=== PATIENT | male | born 1970 | race Caucasian/White ===

== ENCOUNTER 2018-10-30 16:04 | Emergency (ER) | payer OTHER ==
[2018-10-30 16:08] VITALS: BMI 33.6
--- NOTE | 2018-10-30 17:00 | PDOC ---
History of Present Illness - General History Source: Patient Exam Limitations: No Limitations - History of Present Illness Initial Comments: 10/30/18 17:52 The patient is a 47-year-old male, with a significant past medical history of vertigo (meclizine), asthma, and seizures (Trileptal and Keppra, compliant with medications) who presents to the emergency department with dizziness that he describes as unsteadiness, that began 1 week ago. The patient presents with worsening dizzy spells since Thursday, thats aggravated with movement. The patient reports following up with Dr. Garcia, who prescribed the patient meclizine, with slight improvement. The patient reports associated symptoms of tinnitus and headache. At baseline, the patient ambulates with a cane. Denies any recent medication changes. Allergies: NKDA Social history: None reported PCP: Dr. Garcia. Neurologist: Dr. Braldey. <Coby Torres - Last Filed: 10/30/18 19:38> <Taiwo Pressley - Last Filed: 10/30/18 22:35> - General Chief Complaint: Lightheaded Stated Complaint: DIZZIE Time Seen by Provider: 10/30/18 16:39 Past History <Coby Torres - Last Filed: 10/30/18 19:38> - Past Medical History Asthma: Yes Cancer: No Cardiac Disorders: No CVA: No COPD: No CHF: No Dementia: No Diabetes: (hypoglycemia) GI Disorders: No Disorders: No HTN: No Hypercholesterolemia: No Liver Disease: No Seizures: Yes Thyroid Disease: No - Surgical History Abdominal Surgery: No Appendectomy: No Cardiac Surgery: No Cholecystectomy: No Lung Surgery: No Neurologic Surgery: No Orthopedic Surgery: Yes (heel spur left heel; carpal tunnel release, ) - Suicide/Smoking/Psychosocial Hx Smoking Status: No Smoking History: Never smoked Have you smoked in the past 12 months: No Number of Cigarettes Smoked Daily: 0 Hx Alcohol Use: No Drug/Substance Use Hx: No Substance Use Type: None Hx Substance Use Treatment: No <Taiwo Pressley - Last Filed: 10/30/18 22:35> - Past Medical History Allergies/Adverse Reactions: Allergies Allergy/AdvReac Type Severity Reaction Status Date / Time No Known Drug Allergies Allergy Verified 10/30/18 16:08 Home Medications: Ambulatory Orders Albuterol 0.083% Nebulizer Roshni [Ventolin 0.083%] 1 neb NEB QID 06/17/16 Albuterol Sulfate Inhaler - [Ventolin Hfa Inhaler -] 1 - 2 inh PO Q4H PRN Budesonide/Formeterol Fumarate [SYMBICORT 160/4.5mcg -] 2 inh PO DAILY 06/17/16 Buspirone HCl [Buspar -] 10 mg PO DAILY 06/17/16 Citalopram Hydrobromide [Celexa -] 20 mg PO DAILY 06/17/16 Ergocalciferol [Vitamin D2] 50,000 units PO WEEKLY 06/17/16 Famotidine [Pepcid] 40 mg PO DAILY 06/17/16 Montelukast Na [Singulair -] 10 mg PO BID 06/17/16 Propranolol HCl [Propranolol HCl ER] 60 mg PO DAILY 06/17/16 Tiotropium [place] [Spiriva] 1 inh PO DAILY 06/17/16 Zolpidem Tartrate [Ambien] 1 tab PO HS PRN 06/17/16 Fluticasone/Vilanterol [Breo Ellipta 100-25 Mcg INH] 1 each IH DAILY 01/21/17 Gabapentin [Neurontin -] 300 mg PO Q8H 03/05/17 Ibuprofen 800 mg PO BID PRN 03/05/17 Medical Marijuana [Medical Marijuana Oil] 8 mg PO BID #30 tab MDD 2 03/30/17 levETIRAcetam [Keppra -] 1,000 mg PO BID 03/30/17 Oxcarbazepine [Trileptal -] 150 mg PO BID 07/20/17 Diclofenac Sodium 2 gm TP TID PRN #3 tube 10/08/17 Review of Systems - Review of Systems Able to Perform ROS?: Yes Comments:: 10/30/18 17:52 A complete review of 10 out of 10 review of systems is taken and is negative apart from what is previously mentioned below and in the HPI. <Coby Torres - Last Filed: 10/30/18 19:38> *Physical Exam - Vital Signs Last Vital Signs Temp Pulse Resp BP Pulse Ox 98.8 F 74 18 127/77 99 10/30/18 16:05 10/30/18 16:05 10/30/18 16:05 10/30/18 16:05 10/30/18 16:05 - Physical Exam Comments: 10/30/18 19:38 Vitals: Triage Vital signs reviewed General Appearance: no acute distress, well nourished well developed, Head: Atraumatic, normocephalic Eyes: Pupils equal reactive round, extraocular movement intact Ears: TM's normal bilaterally; Neck: Supple;No Nuchal rigidity Chest Wall: Nontender Cardiac: Regular rate and rhythm, no murmurs, no rubs, no gallops, Lungs: Clear to auscultation bilateral, good air movement bilaterally, Abdomen: Soft, nondistended, normal bowel sounds, nontender to palpation Extremities: Full range of motion to all extremities, no cyanosis, clubbing, or edema Skin: Warm and dry, no rashes or lesions, no petechiae Neuro: +ambulated with a cane with steady gait. AOX3; Cranial Nerves 2-12 grossly intact, Strength intact to all extremities, Sensation intact to all extremities Psych: normal mood, normal affect. <Coby Torres - Last Filed: 10/30/18 19:38> - Vital Signs Last Vital Signs Temp Pulse Resp BP Pulse Ox 98.8 F 74 18 127/77 99 10/30/18 16:05 10/30/18 16:05 10/30/18 16:05 10/30/18 16:05 10/30/18 16:05 <Taiwo Pressley - Last Filed: 10/30/18 22:35> Moderate Sedation - Procedure Monitoring Vital Signs: Procedure Monitoring Vital Signs Temperature 98.8 F 10/30/18 16:05 Pulse Rate 74 10/30/18 16:05 Respiratory Rate 18 10/30/18 16:05 Blood Pressure 127/77 10/30/18 16:05 O2 Sat by Pulse Oximetry (%) 99 10/30/18 16:05 <Coby Torres - Last Filed: 10/30/18 19:38> - Procedure Monitoring Vital Signs: Procedure Monitoring Vital Signs Temperature 98.8 F 10/30/18 16:05 Pulse Rate 74 10/30/18 16:05 Respiratory Rate 18 10/30/18 16:05 Blood Pressure 127/77 10/30/18 16:05 O2 Sat by Pulse Oximetry (%) 99 10/30/18 16:05 <Taiwo Pressley - Last Filed: 10/30/18 22:35> ED Treatment Course - LABORATORY CBC & Chemistry Diagram: 10/30/18 17:17 10/30/18 17:17 - ADDITIONAL ORDERS Additional order review: 10/30/18 17:17 RBC 5.15 MCV 89.6 MCHC 34.7 RDW 13.6 MPV 7.0 L Neutrophils % 70.7 Lymphocytes % 22.0 D Monocytes % 6.1 Eosinophils % 0.5 Basophils % 0.7 - Medications Given in the ED: ED Medications Discontinued Medications Generic Name Dose Route Start Last Admin Trade Name Marylou PRN Reason Stop Dose Admin Acetaminophen 1,000 mg 10/30/18 17:02 10/30/18 17:23 Ofirmev Injection - IVPB 10/30/18 17:03 1,000 mg ONCE ONE Administration Lorazepam 0.5 mg 10/30/18 17:02 10/30/18 17:23 Ativan Injection - IVPUSH 10/30/18 17:03 0.5 mg ONCE ONE Administration Meclizine HCl 25 mg 10/30/18 17:02 10/30/18 17:23 Antivert - PO 10/30/18 17:03 25 mg ONCE ONE Administration Sodium Chloride 1,000 ml 10/30/18 17:02 10/30/18 17:23 Normal Saline - IV 10/30/18 17:03 1,000 ml ONCE ONE Administration <Coby Torres - Last Filed: 10/30/18 19:38> - LABORATORY CBC & Chemistry Diagram: 10/30/18 17:17 10/30/18 17:17 <Taiwo Pressley - Last Filed: 10/30/18 22:35> Medical Decision Making - Medical Decision Making 10/30/18 17:44 Plan: BNP, CBC, Fluids, CT head, Keppra level and PO medication. CT head. 10/30/18 19:17 Exam: CT head without IV contrast. Impression: Negative unenhanced CT of the brain. 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 <Coby Torres - Last Filed: 10/30/18 19:38> - Medical Decision Making 10/30/18 19:24 Patient with steady gait around the emergency department no acute findings on CAT scan laboratory analysis within normal limits Keppra level pending Differential diagnosis includes Mnire's disease labyrinthitis chronic vertigo medication adverse effect Patient has ENT follow-up on Thursday recommend that he follow up with his neurologist on Thursday given greater than 1 month history of symptomatology low suspicion for an acute central process at this time Findings, the need for follow-up and strict return instructions discussed with patient. <Taiwo Pressley - Last Filed: 10/30/18 22:35> *DC/Admit/Observation/Transfer - Attestations Scribe Attestion: 10/30/18 17:44 Documentation prepared by Coby Torres, acting as medical research assistant for Taiwo Pressley MD. <Coby Torres - Last Filed: 10/30/18 19:38> - Discharge Dispostion Decision to Admit order: No <Taiwo Pressley - Last Filed: 10/30/18 22:35> Diagnosis at time of Disposition: Vertigo - Discharge Dispostion Disposition: HOME Condition at time of disposition: Improved - Referrals Referrals: Arian Garcia MD [Primary Care Provider] - Awais Bradley MD [Staff Physician] - - Patient Instructions Printed Discharge Instructions: Vertigo Additional Instructions: Drink plenty fluids. Take all home medications as prescribed. Follow-up with her neurologist Dr. Bradley on Thursday. Return to emergency department for any severe worsening symptoms or for any concerns. - Post Discharge Activity
[2018-10-30] MEDS ORDERED: MECLIZINE HCL 25 MG TABLET (FP) PO ONE (17:02)
[2018-10-30] MEDS ORDERED: SODIUM CHLORIDE 0.9% 1000 ML INFUS.BAG IV ONE (17:02)
[2018-10-30] MEDS ORDERED: ACETAMINOPHEN 1000 MG/100 ML VIAL (NON FORMULARY) IVPB ONE (17:02)
[2018-10-30] MEDS ORDERED: MECLIZINE HCL 25 MG TABLET (FP) ONE (17:13)
[2018-10-30] MEDS ORDERED: LORazepam 2 MG/ML SDV VIAL ONE (17:14)
[2018-10-30] MEDS ORDERED: ACETAMINOPHEN INJECTION 100 ML IVPB ONE (17:14)
[2018-10-30 17:25] LABS: BASO % 0.7 % (0-2.0); EOS % 0.5 % (0-4.5); HEMATOCRIT 46.1 % (35.4-49); MCH 31.1 pg (25.7-33.7); MCHC 34.7 g/dl (32.0-35.9); MEAN CELL VOLUME 89.6 fl (80-96); MONO % 6.1 % (3.8-10.2); NEUT % 70.7 % (42.8-82.8); PLATELET COUNT 327 K/MM3 (134-434); RBC 5.15 M/mm3 (4.00-5.60); RDW 13.6 % (11.9-15.9); WHITE BLOOD COUNT 8.5 K/mm3 (4.0-10.0)
[2018-10-30 17:46] LABS: ALBUMIN 3.7 g/dl (3.4-5.0); ALK PHOS 87 U/L (45-117); ANION GAP 6 MMOL/L (8-16); BILIRUBIN,TOTAL 0.2 mg/dL (0.2-1); BLOOD UREA NITROGEN 12 mg/dL (7-18); CALCIUM 8.9 mg/dL (8.5-10.1); CHLORIDE 104 mmol/L (98-107); CO2 27 mmol/L (21-32); CREATININE 0.8 mg/dL (0.55-1.3); GLUCOSE,RANDOM 88 mg/dL (74-106); SGOT/AST 16 U/L (15-37); SGPT/ALT 29 U/L (13-61); SODIUM 137 mmol/L (136-145); TOT PROT 7.2 g/dl (6.4-8.2)
[2018-10-30] MEDS ORDERED: OXcarbazepine 300 MG/5 ML 250 ML BULK BOTTLE PO ONE (19:19)
[2018-10-30] MEDS ORDERED: levETIRAcetam 500 MG TABLET (FP) PO ONE ×2 (19:19→19:38)
[2018-10-30 19:56] VITALS: BP 126/77; PULSE 82; TEMP 98.6
== END 2018-10-30 19:57 | disposition home or self-care (01) ==
LOC: JER 16:04
PROC: 3E033NZ Introduction of Analgesics, Hypnotics, Sedatives into Peripheral Vein, Percutaneous Approach (ICD-10-PCS; principal; 2018-10-30)
PROC: 3E033NZ Introduction of Analgesics, Hypnotics, Sedatives into Peripheral Vein, Percutaneous Approach (ICD-10-PCS; 2018-10-30)
DX: R42 Dizziness and giddiness (principal); J45.909 Unspecified asthma, uncomplicated; G40.909 Epilepsy, unspecified, not intractable, without status epilepticus; Z99.89 Dependence on other enabling machines and devices
CPT/HCPCS: 36415; 70450-TC; 80053; 80177; 85025; 96374; 96375; 99283-25; J0131; J7030

== ENCOUNTER 2019-03-08 08:35 | Day surgery (SDC) | payer OTHER ==
[2019-03-07 13:16] VITALS: BMI 33.6
[2019-03-08 09:00] LABS: BASO % 0.9 % (0-2.0); EOS % 1.1 % (0-4.5); HEMATOCRIT 45.2 % (35.4-49); HEMOGLOBIN 15.2 GM/dL (11.7-16.9); LYMPH % 33.8 % (8-40); MCH 29.9 pg (25.7-33.7); MCHC 33.7 g/dl (32.0-35.9); MEAN CELL VOLUME 88.8 fl (80-96); MEAN PLT VOLUME 6.7 fl (7.5-11.1); MONO % 8.2 % (3.8-10.2); RBC 5.09 M/mm3 (4.00-5.60); RDW 13.7 % (11.9-15.9); WHITE BLOOD COUNT 6.9 K/mm3 (4.0-10.0)
[2019-03-08 09:19] VITALS: BP 106/70; PULSE 71; TEMP 98
[2019-03-08 09:31] LABS: PLATELET COUNT 356 K/MM3 (134-434)
[2019-03-08 10:10] LABS: INR 1.04 (0.83-1.09); PROTHROMBIN TIME (PATIENT) 12.3 SEC (9.7-13.0)
== END 2019-03-08 11:07 | disposition home or self-care (01) ==
LOC: JRADIR 08:35
PROVIDERS: ATTEND Family Medicine
DX: Z53.8 Procedure and treatment not carried out for other reasons (principal)
CPT/HCPCS: 36415; 85025; 85610

== ENCOUNTER 2019-03-28 08:37 | Day surgery (SDC) | payer OTHER ==
[2019-03-25 11:04] VITALS: BMI 33.6
[2019-03-28 09:08] LABS: BASO % 0.6 % (0-2.0); EOS % 0.5 % (0-4.5); HEMATOCRIT 45.1 % (35.4-49); HEMOGLOBIN 15.1 GM/dL (11.7-16.9); LYMPH % 26.5 % (8-40); MCHC 33.5 g/dl (32.0-35.9); MEAN CELL VOLUME 89.4 fl (80-96); MEAN PLT VOLUME 6.9 fl (7.5-11.1); MONO % 7.7 % (3.8-10.2); NEUT % 64.7 % (42.8-82.8); PLATELET COUNT 329 K/MM3 (134-434); RBC 5.05 M/mm3 (4.00-5.60); WHITE BLOOD COUNT 7.3 K/mm3 (4.0-10.0)
[2019-03-28 09:41] LABS: INR 1.13 (0.83-1.09); PROTHROMBIN TIME (PATIENT) 13.3 SEC (9.7-13.0)
[2019-03-28] MEDS ORDERED: ACETAMINOPHEN 325 MG TABLET (FP) PO ONE (13:04)
[2019-03-28 13:54] VITALS: TEMP 97.8
[2019-03-28 14:35] VITALS: BP 110/72; PULSE 77
== END 2019-03-28 14:35 | disposition home or self-care (01) ==
LOC: JRADIR 08:37
PROVIDERS: ATTEND Family Medicine
PROC: 3E0R3BZ Introduction of Anesthetic Agent into Spinal Canal, Percutaneous Approach (ICD-10-PCS; principal; 2019-03-28)
PROC: 3E0R33Z Introduction of Anti-inflammatory into Spinal Canal, Percutaneous Approach (ICD-10-PCS; 2019-03-28)
PROC: B01BYZZ Fluoroscopy of Spinal Cord using Other Contrast (ICD-10-PCS; 2019-03-28)
DX: M54.89 Other dorsalgia (principal); G89.29 Other chronic pain
CPT/HCPCS: 36415; 62322; 77003-TC-FY; 85025; 85610

== ENCOUNTER 2019-05-05 14:02 | Emergency (ER) | payer OTHER ==
[2019-05-05 14:13] VITALS: BP 121/74; PULSE 57; TEMP 98.4; BMI 33.6
--- NOTE | 2019-05-05 14:16 | PDOC ---
Rapid Medical Evaluation Chief Complaint: Back Pain Time Seen by Provider: 05/05/19 14:07 Medical Evaluation: Allergies Allergy/AdvReac Type Severity Reaction Status Date / Time No Known Drug Allergies Allergy Verified 05/05/19 14:13 Vital Signs Temp Pulse Resp BP Pulse Ox 98.4 F 57 L 17 121/74 98 05/05/19 14:10 05/05/19 14:10 05/05/19 14:10 05/05/19 14:10 05/05/19 14:10 05/05/19 14:13 Pt c/o: back pain and neck pain, denies incontinence or abd pain, saddle anesthesia Pt on brief exam: amb w/ cane, no reproducible back pain Pt ordered for: none Pt to proceed to the ED Discharge Disposition - Diagnosis Low back pain Qualifiers: Chronicity: acute Back pain laterality: bilateral Sciatica presence: without sciatica Qualified Code(s): M54.5 - Low back pain - Discharge Dispostion Disposition: HOME Condition at time of disposition: Good - Prescriptions Prescriptions: Cyclobenzaprine HCl [Flexeril 10 mg] 10 mg PO HS PRN #7 tablet PRN Reason: Back Pain Cyclobenzaprine HCl [Flexeril -] 10 mg PO HS #7 tablet Naproxen 500 mg PO BID #20 tablet Naproxen [Naprosyn -] 500 mg PO BID #14 tablet - Referrals Referrals: Arian Garcia MD [Primary Care Provider] - Call tomorrow (call for appointment ) Awais Osman MD [Staff Physician] - Call tomorrow (Call for appointment, ask for back specialist ) - Patient Instructions Printed Discharge Instructions: Low Back Pain Additional Instructions: Activity as tolerated Please call pain management doctor for follow up appointment Take medication as prescribed May call orthopedic number included for appointment - Post Discharge Activity Work/School Note: Back to Work
[2019-05-05] MEDS ORDERED: KETOROLAC TROMETHAMINE 30 MG/1 ML VIAL IM ONE (14:33)
[2019-05-05] MEDS ORDERED: KETOROLAC TROMETHAMINE 30 MG/1 ML VIAL ONE (14:45)
--- NOTE | 2019-05-05 15:12 | PDOC ---
History of Present Illness - General Chief Complaint: Back Pain Stated Complaint: SEVERE BACK PAIN Time Seen by Provider: 05/05/19 14:07 History Source: Patient Exam Limitations: No Limitations - History of Present Illness Initial Comments: 05/05/19 14:34 48 year old male with medical history of seizure and asthma and surgical history of carpal tunnel repair, left heel spur repair, left shoulder repair, and right knee surgery presents with reports of lower back pain since fall yesterday. Patient reports tripping while walking on the sidewalk yesterday falling in sitting position, reports pain from lower back radiating up to neck. Denies numbness or tingling, bowel or bladder dysfunction. Occurred: reports: yesterday Severity: reports: mild Pain Location: reports: back Method of Injury: Yes: fall Modifying Factors: improves with: immobilization, pain medication Loss of Consciousness: no loss of consciousness Associated Symptoms (Fall): denies symptoms Past History - Travel Traveled outside of the country in the last 30 days: No Close contact w/someone who was outside of country & ill: No - Past Medical History Allergies/Adverse Reactions: Allergies Allergy/AdvReac Type Severity Reaction Status Date / Time No Known Drug Allergies Allergy Verified 05/05/19 14:13 Home Medications: Ambulatory Orders Albuterol 0.083% Nebulizer Roshni [Ventolin 0.083%] 1 neb NEB QID 06/17/16 Albuterol Sulfate Inhaler - [Ventolin Hfa Inhaler -] 1 - 2 inh PO Q4H PRN Buspirone HCl [Buspar -] 10 mg PO DAILY 06/17/16 Ergocalciferol [Vitamin D2] 50,000 units PO WEEKLY 06/17/16 Famotidine [Pepcid] 40 mg PO DAILY 06/17/16 Montelukast Na [Singulair -] 10 mg PO BID 06/17/16 Propranolol HCl [Propranolol HCl ER] 20 mg PO DAILY 06/17/16 Tiotropium [place] [Spiriva] 1 inh PO DAILY 06/17/16 Gabapentin [Neurontin -] 300 mg PO Q8H 03/05/17 Ibuprofen 800 mg PO BID PRN 03/05/17 Medical Marijuana [Medical Marijuana Oil] 8 mg PO BID #30 tab MDD 2 03/30/17 levETIRAcetam [Keppra -] 1,000 mg PO BID 03/30/17 Oxcarbazepine [Trileptal -] 600 mg PO BID 07/20/17 Cetirizine HCl [Zyrtec -] 10 mg PO HS 03/08/19 Fluticasone/Vilanterol [Breo Ellipta 100-25 Mcg INH] 1 each IH DAILY 03/08/19 Naproxen/Esomeprazole Mag [Vimovo Dr 500-20 mg Tablet] 1 each PO BID 03/08/19 Pramipexole Di-HCl [Pramipexole Dihydrochloride] 0.5 mg PO HS 03/08/19 Primidone 100 mg PO DAILY 03/08/19 Topiramate 100 mg PO BID 03/08/19 Cyclobenzaprine HCl [Flexeril -] 10 mg PO HS #7 tablet 05/05/19 Cyclobenzaprine HCl [Flexeril 10 mg] 10 mg PO HS PRN #7 tablet 05/05/19 Naproxen 500 mg PO BID #20 tablet 05/05/19 Naproxen [Naprosyn -] 500 mg PO BID #14 tablet 05/05/19 Anemia: No Asthma: Yes Cancer: No Cardiac Disorders: No CVA: No COPD: No CHF: No Dementia: No Diabetes: (hypoglycemia) GI Disorders: No Disorders: No HTN: No Hypercholesterolemia: No Liver Disease: No Seizures: Yes (epilepsy-last one 02/27/19) Thyroid Disease: No - Surgical History Abdominal Surgery: No Appendectomy: No Cardiac Surgery: No Cholecystectomy: No Lung Surgery: No Neurologic Surgery: No Orthopedic Surgery: Yes (heel spur left heel; carpal tunnel release, ) - Suicide/Smoking/Psychosocial Hx Smoking Status: No Smoking History: Never smoked Have you smoked in the past 12 months: No Number of Cigarettes Smoked Daily: 0 Hx Alcohol Use: No Drug/Substance Use Hx: Yes (MEDICAL MARIJUANA, LIQUID FORM) Substance Use Type: Marijuana Hx Substance Use Treatment: No Trauma Specific PMHX - Complaint Specific PMHX Arthritis: No Back Injury: Yes Neck Injury: No Hx Sacro Iliac Joint Dysfunction: No Review of Systems - Review of Systems Able to Perform ROS?: Yes Constitutional: No: Chills, Diaphoresis, Unexplained wgt Loss HEENTM: No: Blurred Vision, Cataracts, Nose Pain, Nose Congestion, Hearing Loss , Throat Swelling Respiratory: No: Orthopnea, Wheezing Cardiac (ROS): No: Chest Pain, Edema, Lightheadedness, Palpitations Musculoskeletal: Yes: Back Pain, Neck Pain. No: Joint Pain Integumentary: No: Bruising, Erythema, Flushing Neurological: No: Numbness, Tremors, Weakness Hematologic/Lymphatic: No: Bleeding Diathesis *Physical Exam - Vital Signs Last Vital Signs Temp Pulse Resp BP Pulse Ox 98.4 F 57 L 17 121/74 98 05/05/19 14:10 05/05/19 14:10 05/05/19 14:10 05/05/19 14:10 05/05/19 14:10 - Physical Exam General Appearance: Yes: Nourished HEENT: positive: TMs Normal, Pharynx Normal Neck: positive: Supple. negative: Lymphadenopathy (R), Lymphadenopathy (L) Respiratory/Chest: positive: Lungs Clear Cardiovascular: positive: Regular Rhythm, Regular Rate Musculoskeletal: positive: Other (tenderness in para lumbar region). 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 Plan: lumbar sacral xray analgesia 05/05/19 22:17 no acute changes noted on xray , chronic conditions is the same from 12/28 *DC/Admit/Observation/Transfer Diagnosis at time of Disposition: Low back pain Qualifiers: Chronicity: acute Back pain laterality: bilateral Sciatica presence: without sciatica Qualified Code(s): M54.5 - Low back pain - Discharge Dispostion Disposition: HOME Condition at time of disposition: Good Decision to Admit order: No - Prescriptions Prescriptions: Cyclobenzaprine HCl [Flexeril 10 mg] 10 mg PO HS PRN #7 tablet PRN Reason: Back Pain Cyclobenzaprine HCl [Flexeril -] 10 mg PO HS #7 tablet Naproxen 500 mg PO BID #20 tablet Naproxen [Naprosyn -] 500 mg PO BID #14 tablet - Referrals Referrals: Arian Garcia MD [Primary Care Provider] - Call tomorrow (call for appointment ) Awais Osman MD [Staff Physician] - Call tomorrow (Call for appointment, ask for back specialist ) - Patient Instructions Printed Discharge Instructions: Low Back Pain Additional Instructions: Activity as tolerated Please call pain management doctor for follow up appointment Take medication as prescribed January call orthopedic number included for appointment - Post Discharge Activity Forms/Work/School Notes: Back to Work
[2019-05-05] MEDS ORDERED: CYCLOBENZAPRINE HCL 10 MG TABLET (FP) PO ONE (15:47)
[2019-05-05] MEDS ORDERED: CYCLOBENZAPRINE HCL 10 MG TABLET (FP) ONE (15:50)
== END 2019-05-05 16:57 | disposition home or self-care (01) ==
LOC: JERFT 14:02
PROC: 3E0233Z Introduction of Anti-inflammatory into Muscle, Percutaneous Approach (ICD-10-PCS; principal; 2019-05-05)
DX: M54.5 Low back pain (principal); G40.909 Epilepsy, unspecified, not intractable, without status epilepticus; J45.909 Unspecified asthma, uncomplicated
CPT/HCPCS: 72100-TC-FY; 99282-25

== ENCOUNTER 2019-06-02 18:37 | Inpatient (IN) | payer OTHER ==
--- NOTE | 2019-06-02 18:55 | PDOC ---
Rapid Medical Evaluation Chief Complaint: Seizure Time Seen by Provider: 06/02/19 18:46 Medical Evaluation: Allergies Allergy/AdvReac Type Severity Reaction Status Date / Time No Known Drug Allergies Allergy Verified 05/05/19 14:13 06/02/19 18:51 Pt presents to the ER after having a seizure. Just started Dilantin as he is having break through seizures on keppra and trilptal. He is compliant with meds. Exam: NAD, not postictal Orders: labs Pt to presents to the ER for further evaluation Discharge Disposition - Diagnosis Seizure - Referrals Referrals: Arian Garcia MD [Primary Care Provider] - - Patient Instructions - Post Discharge Activity
[2019-06-02 20:08] LABS: BASO % 0.7 % (0-2.0); EOS % 0.9 % (0-4.5); HEMATOCRIT 45.4 % (35.4-49); HEMOGLOBIN 15.1 GM/dL (11.7-16.9); LYMPH % 25.9 % (8-40); MCH 29.4 pg (25.7-33.7); MCHC 33.3 g/dl (32.0-35.9); MEAN CELL VOLUME 88.4 fl (80-96); MEAN PLT VOLUME 7.2 fl (7.5-11.1); NEUT % 63.5 % (42.8-82.8); PLATELET COUNT 352 K/MM3 (134-434); RBC 5.13 M/mm3 (4.00-5.60); RDW 13.8 % (11.9-15.9); WHITE BLOOD COUNT 8.2 K/mm3 (4.0-10.0)
--- NOTE | 2019-06-02 20:21 | PDOC ---
History of Present Illness - General Chief Complaint: Seizure Stated Complaint: Seizure Time Seen by Provider: 06/02/19 18:46 History Source: Patient - History of Present Illness Initial Comments: 06/02/19 20:24 48 y/o/m with PMHx of seizures here for seizures that occurred today and yesterday. He states he had two seizures that occurred yesterday that were witnessed by his brother. Patient is unsure how long the seizures lasted yesterday but believes it was only for a few minutes. He had two seizures today , one in the afternoon one in the evening, that were unwitnessed but he believes only lasted a few seconds. He denies any incontinence or fall during any of his seizures. He complains of a headache and states that he usually has a migraine after his seizures. He takes Keepra and trileptal for seizures and was also started on Dilantin yesterday. He denies any chest pain, SOB, abd pain , dysuria, fever, cough, or other symptoms. PCP: Dr. Garcia Neurologist: Dr. Stuart Meza PMHx: Vertigo, Asthma, Seizures, sleep apnea SHx: Heel spurs, R knee surgery for cartilage repair, L shoulder surgery for torn ligament repair, bilateral carpal tunnel surgery Social: denies alcohol and tobacco use. reports using medical marijuana twice a day Past History - Past Medical History Allergies/Adverse Reactions: Allergies Allergy/AdvReac Type Severity Reaction Status Date / Time No Known Drug Allergies Allergy Verified 05/05/19 14:13 Home Medications: Ambulatory Orders Albuterol 0.083% Nebulizer Roshni [Ventolin 0.083%] 1 neb NEB QID 06/17/16 Albuterol Sulfate Inhaler - [Ventolin Hfa Inhaler -] 1 - 2 inh PO Q4H PRN Buspirone HCl [Buspar -] 10 mg PO DAILY 06/17/16 Ergocalciferol [Vitamin D2] 50,000 units PO WEEKLY 06/17/16 Famotidine [Pepcid] 40 mg PO DAILY 06/17/16 Montelukast Na [Singulair -] 10 mg PO BID 06/17/16 Propranolol HCl [Propranolol HCl ER] 20 mg PO DAILY 06/17/16 Tiotropium [place] [Spiriva] 1 inh PO DAILY 06/17/16 Gabapentin [Neurontin -] 300 mg PO Q8H 03/05/17 Ibuprofen 800 mg PO BID PRN 03/05/17 Medical Marijuana [Medical Marijuana Oil] 8 mg PO BID #30 tab MDD 2 03/30/17 levETIRAcetam [Keppra -] 1,000 mg PO BID 03/30/17 Oxcarbazepine [Trileptal -] 600 mg PO BID 07/20/17 Cetirizine HCl [Zyrtec -] 10 mg PO HS 03/08/19 Fluticasone/Vilanterol [Breo Ellipta 100-25 Mcg INH] 1 each IH DAILY 03/08/19 Naproxen/Esomeprazole Mag [Vimovo Dr 500-20 mg Tablet] 1 each PO BID 03/08/19 Pramipexole Di-HCl [Pramipexole Dihydrochloride] 0.5 mg PO HS 03/08/19 Primidone 100 mg PO DAILY 03/08/19 Topiramate 100 mg PO BID 03/08/19 Cyclobenzaprine HCl [Flexeril 10 mg] 10 mg PO HS PRN #7 tablet 05/05/19 Naproxen 500 mg PO BID #20 tablet 05/05/19 Naproxen [Naprosyn -] 500 mg PO BID #14 tablet 05/05/19 Anemia: No Asthma: Yes Cancer: No Cardiac Disorders: No CVA: No COPD: No CHF: No Dementia: No Diabetes: (hypoglycemia) GI Disorders: No Disorders: No HTN: No Hypercholesterolemia: No Liver Disease: No Seizures: Yes (epilepsy-last one 02/27/19) Thyroid Disease: No - Surgical History Abdominal Surgery: No Appendectomy: No Cardiac Surgery: No Cholecystectomy: No Lung Surgery: No Neurologic Surgery: No Orthopedic Surgery: Yes (heel spur left heel; carpal tunnel release, ) - Immunization History Immunization Up to Date: Yes - Suicide/Smoking/Psychosocial Hx Smoking Status: No Smoking History: Never smoked Have you smoked in the past 12 months: No Number of Cigarettes Smoked Daily: 0 Hx Alcohol Use: No Drug/Substance Use Hx: No Substance Use Type: Marijuana Hx Substance Use Treatment: No Review of Systems - Review of Systems Able to Perform ROS?: Yes Constitutional: No: Chills, Fever HEENTM: Yes: Blurred Vision. No: Nose Congestion Respiratory: Yes: Wheezing. No: Cough Cardiac (ROS): No: Chest Pain, Lightheadedness ABD/GI: No: Diarrhea, Nausea, Vomiting : No: Dysuria Musculoskeletal: Yes: Back Pain (chronic) Integumentary: No: Rash Neurological: Yes: Headache Endocrine: No: Excessive Sweating *Physical Exam - Vital Signs Last Vital Signs Temp Pulse Resp BP Pulse Ox 98.2 F 89 16 116/77 96 06/02/19 18:49 06/02/19 18:49 06/02/19 18:49 06/02/19 18:49 06/02/19 18:49 - Physical Exam General Appearance: Yes: Nourished, Appropriately Dressed HEENT: positive: EOMI, MATT, Normal Voice, Symmetrical Neck: positive: Trachea midline, Supple Respiratory/Chest: positive: Lungs Clear, Normal Breath Sounds. negative: Accessory Muscle Use Cardiovascular: positive: Regular Rhythm, Regular Rate, S1, S2 Gastrointestinal/Abdominal: positive: Normal Bowel Sounds, Tender (mild tenderness to palpation over LLQ), Soft Musculoskeletal: negative: CVA Tenderness Extremity: positive: Normal Capillary Refill. negative: Swelling Integumentary: positive: Dry Neurologic: positive: gate tender II-XII NML intact, Fully Oriented, Alert, Motor Strength 5/5, Finger to Nose ED Treatment Course - LABORATORY CBC & Chemistry Diagram: 06/02/19 19:45 06/02/19 19:45 Medical Decision Making - Medical Decision Making 06/02/19 20:38 -48 y/o/m with PMHx of seizures here for seizures that occurred today and yesterday. He states he had two seizures that occurred yesterday that were witnessed by his brother. Patient is unsure how long the seizures lasted yesterday but believes it was only for a few minutes. He had two seizures today , one in the afternoon one in the evening, that were unwitnessed but he believes only lasted a few seconds. He denies any incontinence or fall during any of his seizures. -Workup with: CBC, CMP, Keppra level, Phenytoin level, Lactic acid level, UA, EKG, CT head w/o contrast, CXR. -Tylenol given for headache. -Contacted the answering service for patient's Neurologist, waiting for a call back for recommendations and to schedule follow up. 06/02/19 21:53 -Spoke with Dr. Meza, patient's neurologist. Told that patient is taking Keppra 1500mg BID, Trileptal 600mg TID, and Primodone 250mg TID. Patient is not taking Dilantin. As patient has not taken his evening doses of medication advised to give medications, obtain head CT, phenobarbital levels. Unable to follow up with patient tomorrow as Dr. Meza will not be in his office until Thursday of next week, will see the patient in the office then. -Discussed medications with patient. Patient states he was mistaken, he is not taking Dilantin and is taking Primodone. -Ordered patients home seizure medications. -Will reassess after medications. 06/02/19 22:39 -CBC, CMP grossly normal. Keppra and phenobarbital levels pending. -CT head report negative. CXR reviewed, similar to previous CXR. -Will likely admit patient as patient has had 4 seizures in the last 24 hours which is unusual for him and is unable to follow up with his neurologist until Thursday. -Patient has yet to provide urine for a UA as he does not have to go yet. Provided patient with hydration. -EKG reviewed. Normal sinus rhythm, no acute ischemic changes. 06/02/19 23:39 -UA grossly normal -admitting team microblogged 06/03/19 00:18 -Patient admitted under Dr. Silva to Med/Surg *DC/Admit/Observation/Transfer Diagnosis at time of Disposition: Seizure - Referrals Referrals: Arian Garcia MD [Primary Care Provider] - - Patient Instructions - Post Discharge Activity
[2019-06-02] MEDS ORDERED: ACETAMINOPHEN 325 MG TABLET (FP) PO ONE (20:27)
[2019-06-02 20:34] LABS: ALBUMIN 3.3 g/dl (3.4-5.0); BILIRUBIN,TOTAL 0.2 mg/dL (0.2-1); BLOOD UREA NITROGEN 20.3 mg/dL (7-18); CALCIUM 8.8 mg/dL (8.5-10.1); POTASSIUM 3.9 mmol/L (3.5-5.1); TOT PROT 6.4 g/dl (6.4-8.2)
[2019-06-02] MEDS ORDERED: ACETAMINOPHEN 325 MG TABLET (FP) ONE (20:43)
[2019-06-02] MEDS ORDERED: levETIRAcetam 500 MG/5 ML INJECTION VIAL IVPB ONE ×2 (21:13→22:08)
[2019-06-02] MEDS ORDERED: PRIMIDONE 250 MG TABLET PO ONE (21:15)
--- NOTE | 2019-06-02 21:41 | PDOC ---
Attending Attestation - Resident Resident Name: Mingo Leongruelearnestine Barbara - ED Attending Attestation I have performed the following: I have examined & evaluated the patient, The case was reviewed & discussed with the resident, I agree w/resident's findings & plan, Exceptions are as noted - HPI HPI: 06/02/19 21:40 48M pmh sz do on keppra, trileptal and recent addition of primodone here with 4 breakthrough seizures in the past 48 hours. Yesterday, the events were witness by his brother who described a seizure typical of prior seizures where the patient, without an aura, becomes inattentive to surroundings, starts speaking non-sense, retains postural tone then recovers in less than a minute followed by a short post-ictal period usually c/b a throbbing headache. The episodes today were not witnessed, but patient states that he had two periods where he lost time followed by headache which is typical for him. He is compliant with his medications but states that he missed his last evening dose before coming to the ED. No recent illnesses, denies falling, head trauma, pain outside of headache. - Physicial Exam PE: 06/03/19 00:53 Agree with exam as documented by resident - Medical Decision Making 06/03/19 00:53 Frequent breakthrough seizures in patient with long standing seizure disorder. Patient has had episodes of frequent seizures in the past followed by periods seizure free. Recent increase in seizure activity after changes in medication consider electrolyte imbalance, new intracranial pathology, worsening of primary sz do f/u labs, ct, ekg give evening dose of AEDs consider admission, dispo per clinical course Frequent seizure admit for optimization of treatment, fall/trauma risk neurology aware
[2019-06-02] MEDS ORDERED: OXcarbazepine 300 MG TABLET (UD) PO ONE (22:15)
[2019-06-02] MEDS: OXcarbazepine 300 MG/5 ML 250 ML BULK BOTTLE PO ONE ×2 (22:25→22:26)
[2019-06-02 23:28] LABS: PH,URINE 5.5 (5.0-8.0); URINE APPEARANCE CLEAR; URINE BILIRUBIN NEGATIVE (NEGATIVE); URINE COLOR YELLOW; URINE GLUCOSE (UA) NEGATIVE (NEGATIVE); URINE KETONE NEGATIVE (NEGATIVE); URINE LEUK ESTERASE NEGATIVE (NEGATIVE); URINE NITRITE NEGATIVE (NEGATIVE); URINE PROTEIN NEGATIVE (NEGATIVE)
[2019-06-02] MEDS ORDERED: IBUPROFEN 600 MG TABLET (FP) PO ONE (23:39)
--- NOTE | 2019-06-03 00:35 | HP ---
Admitting History and Physical - Primary Care Physician PCP: Arian Garcia I - Admission Chief Complaint: Seizure Activity History of Present Illness: This is a 48 y/o man with a PMHx of Seizures, Asthma, SAMMIE, Vertigo. Who presents to the ED with seizure activity x 4 episodes in 2 days. Patient had 2 seizures today witnessed by his brother. Patient reports missing his anticonvulsant meds this evening, but generally takes his medications as prescribed. Patient denies fever, chills, cough, MO, dizziness, SOB, CP, palpitations, AP, N/V/D, dysuria History Source: Patient, Family Member Limitations to Obtaining History: No Limitations - Past Medical History PROVIDER RELATIONS REP: Yes: Migraine, Seizure Pulmonary: Yes: Asthma - Past Surgical History Past Surgical History: Yes: None - Smoking History Smoking history: Never smoked Have you smoked in the past 12 months: No Aproximately how many cigarettes per day: 0 - Alcohol/Substance Use Hx Alcohol Use: No History of Substance Use: reports: None - Social History Usual Living Arrangement: Yes: With Parent, Other (Brother) ADL: Independent History of Recent Travel: No Home Medications - Allergies Allergies/Adverse Reactions: Allergies Allergy/AdvReac Type Severity Reaction Status Date / Time No Known Drug Allergies Allergy Verified 05/05/19 14:13 - Home Medications Home Medications: Ambulatory Orders Albuterol 0.083% Nebulizer Roshni [Ventolin 0.083%] 1 neb NEB QID 06/17/16 Albuterol Sulfate Inhaler - [Ventolin Hfa Inhaler -] 1 - 2 inh PO Q4H PRN Buspirone HCl [Buspar -] 10 mg PO DAILY 06/17/16 Ergocalciferol [Vitamin D2] 50,000 units PO WEEKLY 06/17/16 Famotidine [Pepcid] 40 mg PO DAILY 06/17/16 Montelukast Na [Singulair -] 10 mg PO BID 06/17/16 Propranolol HCl [Propranolol HCl ER] 20 mg PO DAILY 06/17/16 Tiotropium [place] [Spiriva] 1 inh PO DAILY 06/17/16 Gabapentin [Neurontin -] 300 mg PO Q8H 03/05/17 Ibuprofen 800 mg PO BID PRN 03/05/17 Medical Marijuana [Medical Marijuana Oil] 8 mg PO BID #30 tab MDD 2 03/30/17 levETIRAcetam [Keppra -] 1,500 mg PO BID 03/30/17 Oxcarbazepine [Trileptal -] 600 mg PO BID 07/20/17 Cetirizine HCl [Zyrtec -] 10 mg PO HS 03/08/19 Fluticasone/Vilanterol [Breo Ellipta 100-25 Mcg INH] 1 each IH DAILY 03/08/19 Naproxen/Esomeprazole Mag [Vimovo Dr 500-20 mg Tablet] 1 each PO BID 03/08/19 Pramipexole Di-HCl [Pramipexole Dihydrochloride] 0.5 mg PO HS 03/08/19 Primidone 250 mg PO DAILY 03/08/19 Topiramate 100 mg PO BID 03/08/19 Cyclobenzaprine HCl [Flexeril 10 mg] 10 mg PO HS PRN #7 tablet 05/05/19 Naproxen 500 mg PO BID #20 tablet 05/05/19 Naproxen [Naprosyn -] 500 mg PO BID #14 tablet 05/05/19 Family Medical History Family Hx Respiratory Disorders: Mother (Asthma) Review of Systems - Review of Systems Constitutional: reports: No Symptoms Eyes: reports: No Symptoms HENT: reports: No Symptoms Neck: reports: No Symptoms Cardiovascular: reports: No Symptoms Respiratory: reports: No Symptoms Gastrointestinal: reports: No Symptoms Genitourinary: reports: No Symptoms Breasts: reports: No Symptoms Reported Musculoskeletal: reports: No Symptoms Integumentary: reports: No Symptoms Neurological: reports: Seizure Endocrine: reports: No Symptoms Hematology/Lymphatic: reports: No Symptoms Psychiatric: reports: No Symptoms Physical Examination Vital Signs: Vital Signs Temperature 97.3 F L 06/02/19 22:02 Pulse Rate 67 06/02/19 22:02 Respiratory Rate 16 06/02/19 18:49 Blood Pressure 105/71 06/02/19 22:02 O2 Sat by Pulse Oximetry (%) 98 06/02/19 22:02 Constitutional: Yes: Well Nourished, No Distress, Calm Eyes: Yes: WNL, Conjunctiva Clear, EOM Intact, PERRL HENT: Yes: WNL, Atraumatic, Normocephalic Neck: Yes: WNL, Supple, Trachea Midline Cardiovascular: Yes: WNL, Regular Rate and Rhythm, S1, S2 Respiratory: Yes: WNL, Regular, CTA Bilaterally Gastrointestinal: Yes: WNL, Normal Bowel Sounds, Soft, Abdomen, Obese ...Rectal Exam: Yes: Deferred Renal/: Yes: WNL Breast(s): Yes: WNL Musculoskeletal: Yes: WNL Extremities: Yes: WNL Edema: No Peripheral Pulses WNL: Yes Neurological: Yes: WNL, Alert, Oriented, Cran Nerves II-XII Intact ...Motor Strength: WNL Psychiatric: Yes: WNL, Alert, Oriented Labs: CBC, BMP 06/02/19 19:45 06/02/19 19:45 Laboratory Results - last 24 hr 06/02/19 06/02/19 06/02/19 19:45 19:45 19:45 WBC 8.2 RBC 5.13 Hgb 15.1 Hct 45.4 MCV 88.4 MCH 29.4 MCHC 33.3 RDW 13.8 Plt Count 352 MPV 7.2 L Absolute Neuts (auto) 5.2 Neutrophils % 63.5 Lymphocytes % 25.9 Monocytes % 9.0 Eosinophils % 0.9 Basophils % 0.7 Nucleated RBC % 0 Sodium 137 Potassium 3.9 Chloride 105 Carbon Dioxide 25 Anion Gap 6 L BUN 20.3 H Creatinine 1.0 Est GFR (CKD-EPI)AfAm 102.69 Est GFR (CKD-EPI)NonAf 88.61 Random Glucose 83 Lactic Acid Calcium 8.8 Total Bilirubin 0.2 AST 16 ALT 31 Alkaline Phosphatase 85 Total Protein 6.4 Albumin 3.3 L Urine Color Urine Appearance Urine pH Ur Specific [place] Urine Protein Urine Glucose (UA) Urine Ketones Urine Blood Urine Nitrite Urine Bilirubin Urine Urobilinogen Ur Leukocyte Esterase Phenytoin 1.1 06/02/19 06/02/19 19:45 23:21 WBC RBC Hgb Hct MCV MCH MCHC RDW Plt Count MPV Absolute Neuts (auto) Neutrophils % Lymphocytes % Monocytes % Eosinophils % Basophils % Nucleated RBC % Sodium Potassium Chloride Carbon Dioxide Anion Gap BUN Creatinine Est GFR (CKD-EPI)AfAm Est GFR (CKD-EPI)NonAf Random Glucose Lactic Acid 1.1 Calcium Total Bilirubin AST ALT Alkaline Phosphatase Total Protein Albumin Urine Color Yellow Urine Appearance Clear Urine pH 5.5 D Ur Specific [place] 1.030 Urine Protein Negative Urine Glucose (UA) Negative Urine Ketones Negative Urine Blood Negative Urine Nitrite Negative Urine Bilirubin Negative Urine Urobilinogen 1.0 Ur Leukocyte Esterase Negative Phenytoin Intake & Output 05/31/19 06/01/19 06/02/19 06/03/19 23:59 23:59 23:59 23:59 Weight 97.522 kg 101.015 kg Current Medications Generic Name Dose Route Start Last Admin Trade Name Freq PRN Reason Stop Dose Admin Heparin Sodium (Porcine) 5,000 unit 06/03/19 10:00 Heparin - SQ BID KEMI Levetiracetam 1,500 mg 06/03/19 10:00 Keppra - PO BID KEMI Miscellaneous 1 each 06/03/19 22:00 Lidoderm Patch Removal MC 06/03/19 22:01 ONCE@2200 ONE Oxcarbazepine 600 mg 06/03/19 06:00 Trileptal PO TID KEMI Primidone 250 mg 06/03/19 06:00 Mysoline - PO TID KEMI Imaging - Results Chest X-ray: Image Reviewed Cat Scan: Report Reviewed, Image Reviewed EKG: Image Reviewed Problem List - Problems (1) Seizure Code(s): R56.9 - UNSPECIFIED CONVULSIONS (2) Anxiety and depression Code(s): F41.9 - ANXIETY DISORDER, UNSPECIFIED; F32.9 - MAJOR DEPRESSIVE DISORDER, SINGLE EPISODE, UNSPECIFIED (3) Asthma Code(s): J45.909 - UNSPECIFIED ASTHMA, UNCOMPLICATED Qualifiers: Asthma severity: mild intermittent Asthma complication type: with acute exacerbation Assessment/Plan This is a 48 y/o man admitted for Seizure Activity for further evaluation of their emergent condition Plan: Admit Head CT- neg ICH, no mass or lesion Keppra, Trileptal, Primidone given in ED, will continue Appreciate Neurology consult Neurochecks Seizure Precautions Fall Precautions UA and UDT ordered Continue home meds Monitor CBC, BMP Monitor vitals FEN- PO fluids as tolerated, Replete lytes prn, Regular Diet DVT ppx- OOB, SCDs, Heparin SQ Dispo: Requires Inpatient Care Visit type - Emergency Visit Emergency Visit: Yes ED Registration Date: 06/02/19 Care time: The patient presented to the Emergency Department on the above date and was hospitalized for further evaluation of their emergent condition. - New Patient This patient is new to me today: Yes Date on this admission: 06/03/19 - Critical Care Critical Care patient: No
[2019-06-03] MEDS ORDERED: IBUPROFEN 600 MG TABLET (FP) PO ONE (01:38)
[2019-06-03] MEDS ORDERED: LIDOCAINE 5% TOPICAL PATCH TP ONE ×2 (01:41→20:14)
[2019-06-03] MEDS ORDERED: ACETAMINOPHEN 325 MG TABLET (FP) PO ONE (01:48)
[2019-06-03] MEDS ORDERED: LIDOCAINE 5% TOPICAL PATCH ONE (02:09)
[2019-06-03 04:11] VITALS: BMI 34.9
[2019-06-03] MEDS ORDERED: PT OWN MED DRAWER 7, Y5N ONE ×3 (06:05→21:25)
[2019-06-03 06:44] LABS: BASO % 0.3 % (0-2.0); EOS % 1.3 % (0-4.5); HEMATOCRIT 41.5 % (35.4-49); HEMOGLOBIN 13.9 GM/dL (11.7-16.9); LYMPH % 36.1 % (8-40); MCH 29.6 pg (25.7-33.7); MCHC 33.5 g/dl (32.0-35.9); MEAN CELL VOLUME 88.2 fl (80-96); MONO % 7.6 % (3.8-10.2); NEUT % 54.7 % (42.8-82.8); PLATELET COUNT 307 K/MM3 (134-434); RBC 4.71 M/mm3 (4.00-5.60); RDW 13.7 % (11.9-15.9); WHITE BLOOD COUNT 7.8 K/mm3 (4.0-10.0)
[2019-06-03] MEDS: OXcarbazepine 300 MG/5 ML 250 ML BULK BOTTLE PO SCH ×3 (07:20→21:39)
[2019-06-03] MEDS: PRIMIDONE 250 MG TABLET PO SCH ×3 (07:20→21:39)
[2019-06-03 07:22] LABS: BLOOD UREA NITROGEN 22.2 mg/dL (7-18); CALCIUM 8.5 mg/dL (8.5-10.1); CREATININE 0.9 mg/dL (0.55-1.3); POTASSIUM 3.7 mmol/L (3.5-5.1)
--- NOTE | 2019-06-03 09:39 | CONSULT ---
Consult - text type - Consultation Consultation Note: Neurology - Admission Chief Complaint: Seizure Activity History of Present Illness: This is a 48 y/o man with a PMHx of Seizures, Asthma, SAMMIE, Vertigo. Who presents to the ED with seizure activity x 4 episodes in 2 days. Patient had 2 seizures on day of admission witnessed by his brother. Patient reported missing his anticonvulsant meds the evening of admission, but generally takes his medications as prescribed. Patient denies fever, chills, cough, MO, dizziness, SOB, CP, palpitations, AP, N/V/D, dysuria. his list includes Keppra 1500 mg twice a day, Trileptal 600 mg twice a day along with Topamax 100 mg twice a day. Of note, he is also on medical marijuana according to medication list. At this time, I would slightly increase Topamax to 150 mg twice a day for improved seizure control. The patient does provide limited history and is unclear in terms of what is exactly a seizure. Since recent event was witnessed, feel that medication increases warranted. Ct head reviewed them without acute changes. History Source: Patient, Family Member Limitations to Obtaining History: No Limitations - Past Medical History LEI SELLER: Yes: Migraine, Seizure Pulmonary: Yes: Asthma - Past Surgical History Past Surgical History: Yes: None - Smoking History Smoking history: Never smoked Have you smoked in the past 12 months: No Aproximately how many cigarettes per day: 0 - Alcohol/Substance Use Hx Alcohol Use: No History of Substance Use: reports: None - Social History Usual Living Arrangement: Yes: With Parent, Other (Brother) ADL: Independent History of Recent Travel: No Home Medications - Allergies Allergies/Adverse Reactions: Allergies Allergy/AdvReac Type Severity Reaction Status Date / Time No Known Drug Allergies Allergy Verified 05/05/19 14:13 - Home Medications Home Medications: Ambulatory Orders Albuterol 0.083% Nebulizer Roshni [Ventolin 0.083%] 1 neb NEB QID 06/17/16 Albuterol Sulfate Inhaler - [Ventolin Hfa Inhaler -] 1 - 2 inh PO Q4H PRN Buspirone HCl [Buspar -] 10 mg PO DAILY 06/17/16 Ergocalciferol [Vitamin D2] 50,000 units PO WEEKLY 06/17/16 Famotidine [Pepcid] 40 mg PO DAILY 06/17/16 Montelukast Na [Singulair -] 10 mg PO BID 06/17/16 Propranolol HCl [Propranolol HCl ER] 20 mg PO DAILY 06/17/16 Tiotropium [place] [Spiriva] 1 inh PO DAILY 06/17/16 Gabapentin [Neurontin -] 300 mg PO Q8H 03/05/17 Ibuprofen 800 mg PO BID PRN 03/05/17 Medical Marijuana [Medical Marijuana Oil] 8 mg PO BID #30 tab MDD 2 03/30/17 levETIRAcetam [Keppra -] 1,500 mg PO BID 03/30/17 Oxcarbazepine [Trileptal -] 600 mg PO BID 07/20/17 Cetirizine HCl [Zyrtec -] 10 mg PO HS 03/08/19 Fluticasone/Vilanterol [Breo Ellipta 100-25 Mcg INH] 1 each IH DAILY 03/08/19 Naproxen/Esomeprazole Mag [Vimovo Dr 500-20 mg Tablet] 1 each PO BID 03/08/19 Pramipexole Di-HCl [Pramipexole Dihydrochloride] 0.5 mg PO HS 03/08/19 Primidone 250 mg PO DAILY 03/08/19 Topiramate 100 mg PO BID 03/08/19 Cyclobenzaprine HCl [Flexeril 10 mg] 10 mg PO HS PRN #7 tablet 05/05/19 Naproxen 500 mg PO BID #20 tablet 05/05/19 Naproxen [Naprosyn -] 500 mg PO BID #14 tablet 05/05/19 Family Medical History Family Hx Respiratory Disorders: Mother (Asthma) Review of Systems - Review of Systems Constitutional: reports: No Symptoms Eyes: reports: No Symptoms HENT: reports: No Symptoms Neck: reports: No Symptoms Cardiovascular: reports: No Symptoms Respiratory: reports: No Symptoms Gastrointestinal: reports: No Symptoms Genitourinary: reports: No Symptoms Breasts: reports: No Symptoms Reported Musculoskeletal: reports: No Symptoms Integumentary: reports: No Symptoms Neurological: reports: Seizure Endocrine: reports: No Symptoms Hematology/Lymphatic: reports: No Symptoms Psychiatric: reports: No Symptoms Physical Examination Vital Signs: Vital Signs Temperature 97.3 F L 06/02/19 22:02 Pulse Rate 67 06/02/19 22:02 Respiratory Rate 16 06/02/19 18:49 Blood Pressure 105/71 06/02/19 22:02 O2 Sat by Pulse Oximetry (%) 98 06/02/19 22:02 Constitutional: Yes: Well Nourished, No Distress, Calm Eyes: Yes: WNL, Conjunctiva Clear, EOM Intact, PERRL HENT: Yes: WNL, Atraumatic, Normocephalic Neck: Yes: WNL, Supple, Trachea Midline Cardiovascular: Yes: WNL, Regular Rate and Rhythm, S1, S2 Respiratory: Yes: WNL, Regular, CTA Bilaterally Gastrointestinal: Yes: WNL, Normal Bowel Sounds, Soft, Abdomen, Obese ...Rectal Exam: Yes: Deferred Renal/: Yes: WNL Breast(s): Yes: WNL Musculoskeletal: Yes: WNL Extremities: Yes: WNL Edema: No Peripheral Pulses WNL: Yes Neurological: cranial nerves intact, moves all extremities equally, no abnormal movements, sensory normal, finger-nose intact Laboratory Results - last 24 hr 06/02/19 06/02/19 06/02/19 19:45 19:45 19:45 WBC 8.2 RBC 5.13 Hgb 15.1 Hct 45.4 MCV 88.4 MCH 29.4 MCHC 33.3 RDW 13.8 Plt Count 352 MPV 7.2 L Absolute Neuts (auto) 5.2 Neutrophils % 63.5 Lymphocytes % 25.9 Monocytes % 9.0 Eosinophils % 0.9 Basophils % 0.7 Nucleated RBC % 0 Sodium 137 Potassium 3.9 Chloride 105 Carbon Dioxide 25 Anion Gap 6 L BUN 20.3 H Creatinine 1.0 Est GFR (CKD-EPI)AfAm 102.69 Est GFR (CKD-EPI)NonAf 88.61 Random Glucose 83 Lactic Acid Calcium 8.8 Total Bilirubin 0.2 AST 16 ALT 31 Alkaline Phosphatase 85 Total Protein 6.4 Albumin 3.3 L Urine Color Urine Appearance Urine pH Ur Specific [place] Urine Protein Urine Glucose (UA) Urine Ketones Urine Blood Urine Nitrite Urine Bilirubin Urine Urobilinogen Ur Leukocyte Esterase Phenytoin 1.1 06/02/19 06/02/19 19:45 23:21 WBC RBC Hgb Hct MCV MCH MCHC RDW Plt Count MPV Absolute Neuts (auto) Neutrophils % Lymphocytes % Monocytes % Eosinophils % Basophils % Nucleated RBC % Sodium Potassium Chloride Carbon Dioxide Anion Gap BUN Creatinine Est GFR (CKD-EPI)AfAm Est GFR (CKD-EPI)NonAf Random Glucose Lactic Acid 1.1 Calcium Total Bilirubin AST ALT Alkaline Phosphatase Total Protein Albumin Urine Color Yellow Urine Appearance Clear Urine pH 5.5 D Ur Specific [place] 1.030 Urine Protein Negative Urine Glucose (UA) Negative Urine Ketones Negative Urine Blood Negative Urine Nitrite Negative Urine Bilirubin Negative Urine Urobilinogen 1.0 Ur Leukocyte Esterase Negative Phenytoin Assessment/Plan This is a 48 y/o man with a PMHx of Seizures, Asthma, SAMMIE, Vertigo. Who presents to the ED with seizure activity x 4 episodes in 2 days. Patient had 2 seizures on day of admission witnessed by his brother. Patient reported missing his anticonvulsant meds the evening of admission, but generally takes his medications as prescribed. Patient denies fever, chills, cough, MO, dizziness, SOB, CP, palpitations, AP, N/V/D, dysuria. his list includes Keppra 1500 mg twice a day, Trileptal 600 mg twice a day along with Topamax 100 mg twice a day. Of note, he is also on medical marijuana according to medication list. At this time, I would slightly increase Topamax to 150 mg twice a day for improved seizure control. The patient does provide limited history and is unclear in terms of what is exactly a seizure. Since recent event was witnessed, feel that medication increases warranted. Ct head reviewed them without acute changes. Please observe overnight and if remains seizure free by tomorrow afternoon than would consider discharge. Continue medical optimization and monitor for infections, replenish electrolytes, adequate hydration recommended, seizure precautions.
[2019-06-03] MEDS ORDERED: TOPIRAMATE 100 MG TABLET PO SCH (10:00)
[2019-06-03] MEDS ORDERED: TOPIRAMATE 25 MG TABLET (FP) PO SCH (10:00)
[2019-06-03] MEDS: levETIRAcetam 500 MG TABLET (FP) PO SCH ×2 (10:57→21:39)
[2019-06-03] MEDS: HEPARIN NA (PORCINE) 5,000 UNITS/ML 1ML VIAL SQ SCH ×2 (10:58→21:40)
[2019-06-03] MEDS ORDERED: TOPIRAMATE 100 MG TABLET ONE ×2 (12:25→21:25)
[2019-06-03] MEDS ORDERED: TOPIRAMATE 25 MG TABLET (FP) ONE ×2 (12:25→21:25)
[2019-06-03] MEDS: TOPIRAMATE 100 MG, TOPIRAMATE 50 MG PO SCH ×2 (12:28→21:39)
--- NOTE | 2019-06-03 14:23 | EKG ---
Test Reason : Blood Pressure : / mmHG Vent. Rate : 078 BPM Atrial Rate : 078 BPM P-R Int : 148 ms QRS Dur : 086 ms QT Int : 366 ms P-R-T Axes : 057 038 035 degrees QTc Int : 417 ms NORMAL SINUS RHYTHM POSSIBLE LEFT ATRIAL ENLARGEMENT WHEN COMPARED WITH ECG OF 28-APR-2015 05:08, NO SIGNIFICANT CHANGE WAS FOUND Confirmed by PRITESH PAGAN MD ([id number]) on 06/03/2019 2:23:32 PM Referred By: Confirmed By:PRITESH PAGAN MD
[2019-06-03] MEDS: ACETAMINOPHEN 325 MG TABLET (FP) PO PRN ×2 (15:44→20:21)
--- NOTE | 2019-06-03 16:42 | PN ---
Progress Note, Physician Chief Complaint: Seizures History of Present Illness: Previous notes and events reviewed awake and alert NAD no seizure episodes reported complain of headache - Current Medication List Current Medications: Active Medications Acetaminophen (Tylenol -) 650 mg PO Q6H PRN PRN Reason: PAIN Last Admin: 06/03/19 15:44 Dose: 650 mg Heparin Sodium (Porcine) (Heparin -) 5,000 unit SQ BID [facility] Last Admin: 06/03/19 10:58 Dose: 5,000 unit Levetiracetam (Keppra -) 1,500 mg PO BID [facility] Last Admin: 06/03/19 10:57 Dose: 1,500 mg Miscellaneous (Lidoderm Patch Removal) 1 each ONCE@2200 ONE Stop: 06/03/19 22:01 Oxcarbazepine (Trileptal) 600 mg PO TID [facility] Last Admin: 06/03/19 14:09 Dose: 600 mg Primidone (Mysoline -) 250 mg PO TID [facility] Last Admin: 06/03/19 14:10 Dose: 250 mg Topiramate 100 mg/ Topiramate (50 mg) 150 mg PO BID [facility] Last Admin: 06/03/19 12:28 Dose: 150 mg - Objective Vital Signs: Vital Signs Temperature 98.5 F 06/03/19 14:00 Pulse Rate 78 06/03/19 14:00 Respiratory Rate 18 06/03/19 14:00 Blood Pressure 113/74 06/03/19 14:00 O2 Sat by Pulse Oximetry (%) 98 06/02/19 22:02 Constitutional: Yes: No Distress, Calm Eyes: Yes: Conjunctiva Clear HENT: Yes: Atraumatic Cardiovascular: Yes: Regular Rate and Rhythm Respiratory: Yes: Regular, CTA Bilaterally Gastrointestinal: Yes: Normal Bowel Sounds, Soft Musculoskeletal: Yes: Muscle Weakness Extremities: Yes: WNL Edema: No Neurological: Yes: Alert, Oriented Psychiatric: Yes: Alert, Oriented Labs: CBC, BMP 06/03/19 06:00 06/03/19 06:00 Problem List - Problems (1) Seizure Assessment/Plan: -Neurology on board -Head CT shows no intracranial pathology and definitive interval changesince -neuro checks -seizure precaution -fall precautions -Keppra, Topamax, Trileptal, Mysoline Code(s): R56.9 - UNSPECIFIED CONVULSIONS Assessment/Plan see problem list dvt ppx
[2019-06-03] MEDS: LIDOCAINE PATCH REMOVAL MC SCH (21:39)
[2019-06-03] MEDS ORDERED: LIDOCAINE PATCH REMOVAL MC ONE (22:00)
[2019-06-04] MEDS: ACETAMINOPHEN 325 MG TABLET (FP) PO PRN ×2 (04:14→16:14)
[2019-06-04] MEDS: OXcarbazepine 300 MG/5 ML 250 ML BULK BOTTLE PO SCH ×3 (06:19→22:42)
[2019-06-04] MEDS: PRIMIDONE 250 MG TABLET PO SCH ×3 (06:19→21:26)
[2019-06-04 06:38] LABS: HEMATOCRIT 42.1 % (35.4-49); HEMOGLOBIN 14.3 GM/dL (11.7-16.9); MEAN CELL VOLUME 88.3 fl (80-96); MEAN PLT VOLUME 6.9 fl (7.5-11.1); PLATELET COUNT 321 K/MM3 (134-434); RBC 4.77 M/mm3 (4.00-5.60); RDW 13.9 % (11.9-15.9); WHITE BLOOD COUNT 6.7 K/mm3 (4.0-10.0)
[2019-06-04 07:07] LABS: ALBUMIN 3.1 g/dl (3.4-5.0); BILIRUBIN,TOTAL 0.4 mg/dL (0.2-1); BLOOD UREA NITROGEN 15.4 mg/dL (7-18); CALCIUM 8.7 mg/dL (8.5-10.1); CREATININE 0.9 mg/dL (0.55-1.3); POTASSIUM 3.8 mmol/L (3.5-5.1); TOT PROT 5.8 g/dl (6.4-8.2)
[2019-06-04] MEDS ORDERED: TOPIRAMATE 100 MG TABLET ONE ×2 (10:10→21:16)
[2019-06-04] MEDS ORDERED: TOPIRAMATE 25 MG TABLET (FP) ONE ×2 (10:10→21:16)
[2019-06-04] MEDS ORDERED: levETIRAcetam 250 MG TABLET (FP) PO ONE ×2 (10:11→10:12)
[2019-06-04] MEDS: HEPARIN NA (PORCINE) 5,000 UNITS/ML 1ML VIAL SQ SCH ×2 (10:21→21:26)
[2019-06-04] MEDS: levETIRAcetam 500 MG TABLET (FP) PO SCH ×2 (10:21→21:26)
[2019-06-04] MEDS: TOPIRAMATE 100 MG, TOPIRAMATE 50 MG PO SCH ×2 (10:22→21:26)
--- NOTE | 2019-06-04 10:28 | PN ---
Progress Note, Physician Chief Complaint: AWAKE ALERT C/O HEADACHES, NO FEVERS APPETITE IS GOOD DENIES VISION ABNORMALITY - Current Medication List Current Medications: Active Medications Acetaminophen (Tylenol -) 650 mg PO Q6H PRN PRN Reason: PAIN Last Admin: 06/04/19 04:14 Dose: 650 mg Heparin Sodium (Porcine) (Heparin -) 5,000 unit SQ BID [facility] Last Admin: 06/04/19 10:21 Dose: 5,000 unit Levetiracetam (Keppra -) 1,500 mg PO BID [facility] Last Admin: 06/04/19 10:21 Dose: 1,500 mg Miscellaneous (Lidoderm Patch Removal) 1 each MC DAILY@2200 [facility] Last Admin: 06/03/19 21:39 Dose: 1 each Oxcarbazepine (Trileptal) 600 mg PO TID [facility] Last Admin: 06/04/19 06:19 Dose: 600 mg Primidone (Mysoline -) 250 mg PO TID [facility] Last Admin: 06/04/19 06:19 Dose: 250 mg Topiramate 100 mg/ Topiramate (50 mg) 150 mg PO BID [facility] Last Admin: 06/04/19 10:22 Dose: 150 mg - Objective Vital Signs: Vital Signs Temperature 97.6 F 06/04/19 10:23 Pulse Rate 73 06/04/19 10:23 Respiratory Rate 18 06/04/19 10:23 Blood Pressure 106/72 06/04/19 10:23 O2 Sat by Pulse Oximetry (%) 98 06/02/19 22:02 Constitutional: Yes: Mild Distress Cardiovascular: Yes: Regular Rate and Rhythm Respiratory: Yes: WNL Genitourinary: Yes: Incontinence Musculoskeletal: Yes: Muscle Weakness Extremities: Yes: WNL Edema: No Integumentary: Yes: Rash, Venous Stasis Changes Wound/Incision: Yes: Open to air Neurological: Yes: Pre-Existing Deficit, Seizure, Unsteady Gait, Weakness ...Motor Strength: LLE, RLE Psychiatric: Yes: Other Labs: CBC, BMP 06/04/19 05:30 06/04/19 05:30 Problem List - Problems (1) Seizure Code(s): R56.9 - UNSPECIFIED CONVULSIONS (2) Anxiety and depression Code(s): F41.9 - ANXIETY DISORDER, UNSPECIFIED; F32.9 - MAJOR DEPRESSIVE DISORDER, SINGLE EPISODE, UNSPECIFIED (3) Asthma Code(s): J45.909 - UNSPECIFIED ASTHMA, UNCOMPLICATED Qualifiers: Asthma severity: mild intermittent Asthma complication type: with acute exacerbation (4) DISH (diffuse idiopathic skeletal hyperostosis) Code(s): M48.10 - ANKYLOSING HYPEROSTOSIS [FORESTIER], SITE UNSPECIFIED (5) Status migrainosus Code(s): G43.901 - MIGRAINE, UNSP, NOT INTRACTABLE, WITH STATUS MIGRAINOSUS (6) Vertigo Code(s): R42 - DIZZINESS AND GIDDINESS Assessment/Plan SEIZURE D/O STABLE ADD TORADOL IV LABS REVIEWED PT IVORY
--- NOTE | 2019-06-04 10:29 | PN ---
Progress Note (short form) - Note Progress Note: Neurology - Admission Chief Complaint: Seizure Activity History of Present Illness: This is a 48 y/o man with a PMHx of Seizures, Asthma, SAMMIE, Vertigo. Who presents to the ED with seizure activity x 4 episodes in 2 days. Patient had 2 seizures on day of admission witnessed by his brother. Patient reported missing his anticonvulsant meds the evening of admission, but generally takes his medications as prescribed. Patient denies fever, chills, cough, MO, dizziness, SOB, CP, palpitations, AP, N/V/D, dysuria. his list includes Keppra 1500 mg twice a day, Trileptal 600 mg twice a day along with Topamax 100 mg twice a day. Of note, he is also on medical marijuana according to medication list. At this time, I would slightly increase Topamax to 150 mg twice a day for improved seizure control. The patient does provide limited history and is unclear in terms of what is exactly a seizure. Since recent event was witnessed, feel that medication increases warranted. Ct head reviewed them without acute changes. Topamax 150mg BID ordered. Discussed with PCP, remains stable, complains of headaches, PCP planning to give medication. Patient on TPM which reduces headaches. Allergies Allergy/AdvReac Type Severity Reaction Status Date / Time No Known Drug Allergies Allergy Verified 05/05/19 14:13 Active Medications Acetaminophen (Tylenol -) 650 mg PO Q6H PRN PRN Reason: PAIN Last Admin: 06/04/19 04:14 Dose: 650 mg Heparin Sodium (Porcine) (Heparin -) 5,000 unit SQ BID [facility] Last Admin: 06/04/19 10:21 Dose: 5,000 unit Levetiracetam (Keppra -) 1,500 mg PO BID [facility] Last Admin: 06/04/19 10:21 Dose: 1,500 mg Miscellaneous (Lidoderm Patch Removal) 1 each [facility] DAILY@2200 [facility] Last Admin: 06/03/19 21:39 Dose: 1 each Oxcarbazepine (Trileptal) 600 mg PO TID [facility] Last Admin: 06/04/19 06:19 Dose: 600 mg Primidone (Mysoline -) 250 mg PO TID [facility] Last Admin: 06/04/19 06:19 Dose: 250 mg Topiramate 100 mg/ Topiramate (50 mg) 150 mg PO BID [facility] Last Admin: 06/04/19 10:22 Dose: 150 mg Physical Examination Vital Signs: Vital Signs Period Temp Pulse Resp BP Sys/Cr Pulse Ox Last 24 Hr 97.5 F-98.5 F 66-79 18-20 100-113/54-77 Constitutional: Yes: Well Nourished, No Distress, Calm Eyes: Yes: WNL, Conjunctiva Clear, EOM Intact, PERRL HENT: Yes: WNL, Atraumatic, Normocephalic Neck: Yes: WNL, Supple, Trachea Midline Cardiovascular: Yes: WNL, Regular Rate and Rhythm, S1, S2 Respiratory: Yes: WNL, Regular, CTA Bilaterally Gastrointestinal: Yes: WNL, Normal Bowel Sounds, Soft, Abdomen, Obese ...Rectal Exam: Yes: Deferred Renal/: Yes: WNL Breast(s): Yes: WNL Musculoskeletal: Yes: WNL Extremities: Yes: WNL Edema: No Peripheral Pulses WNL: Yes Neurological: cranial nerves intact, moves all extremities equally, no abnormal movements, sensory normal, finger-nose intact CBCD WBC 6.7 K/mm3 (4.0-10.0) 06/04/19 05:30 RBC 4.77 M/mm3 (4.00-5.60) 06/04/19 05:30 Hgb 14.3 GM/dL (11.7-16.9) 06/04/19 05:30 Hct 42.1 % (35.4-49) 06/04/19 05:30 MCV 88.3 fl (80-96) 06/04/19 05:30 MCHC 34.0 g/dl (32.0-35.9) 06/04/19 05:30 RDW 13.9 % (11.9-15.9) 06/04/19 05:30 Plt Count 321 K/MM3 (134-434) 06/04/19 05:30 MPV 6.9 fl (7.5-11.1) L 06/04/19 05:30 CMP Sodium 136 mmol/L (136-145) 06/04/19 05:30 Potassium 3.8 mmol/L (3.5-5.1) 06/04/19 05:30 Chloride 105 mmol/L (98-107) 06/04/19 05:30 Carbon Dioxide 24 mmol/L (21-32) 06/04/19 05:30 Anion Gap 7 MMOL/L (8-16) L 06/04/19 05:30 BUN 15.4 mg/dL (7-18) 06/04/19 05:30 Creatinine 0.9 mg/dL (0.55-1.3) 06/04/19 05:30 Calcium 8.7 mg/dL (8.5-10.1) 06/04/19 05:30 Total Bilirubin 0.4 mg/dL (0.2-1) 06/04/19 05:30 AST 13 U/L (15-37) L 06/04/19 05:30 ALT 25 U/L (13-61) 06/04/19 05:30 Alkaline Phosphatase 71 U/L (45-117) 06/04/19 05:30 Total Protein 5.8 g/dl (6.4-8.2) L 06/04/19 05:30 Albumin 3.1 g/dl (3.4-5.0) L 06/04/19 05:30 Assessment/Plan This is a 48 y/o man with a PMHx of Seizures, Asthma, SAMMIE, Vertigo. Who presents to the ED with seizure activity x 4 episodes in 2 days. Patient had 2 seizures on day of admission witnessed by his brother. Patient reported missing his anticonvulsant meds the evening of admission, but generally takes his medications as prescribed. Patient denies fever, chills, cough, MO, dizziness, SOB, CP, palpitations, AP, N/V/D, dysuria. his list includes Keppra 1500 mg twice a day, Trileptal 600 mg twice a day along with Topamax 100 mg twice a day. Of note, he is also on medical marijuana according to medication list. At this time, I would slightly increase Topamax to 150 mg twice a day for improved seizure control. The patient does provide limited history and is unclear in terms of what is exactly a seizure. Since recent event was witnessed, feel that medication increases warranted. Ct head reviewed them without acute changes. Tomamax 150mg BID ordered. Continue medical optimization and monitor for infections, replenish electrolytes, adequate hydration recommended, seizure precautions. D/C planning as per primary.
[2019-06-04] MEDS: KETOROLAC TROMETHAMINE 30 MG/1 ML VIAL IVPUSH PRN ×2 (13:01→22:42)
[2019-06-04] MEDS ORDERED: PT OWN MED DRAWER 7, Y5N ONE ×2 (21:17→22:39)
[2019-06-04] MEDS: LIDOCAINE PATCH REMOVAL MC SCH (21:27)
[2019-06-05] MEDS: PRIMIDONE 250 MG TABLET PO SCH ×3 (06:05→22:37)
[2019-06-05] MEDS: OXcarbazepine 300 MG/5 ML 250 ML BULK BOTTLE PO SCH ×3 (06:35→22:38)
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
[2019-06-05] MEDS ORDERED: TOPIRAMATE 100 MG TABLET ONE ×2 (10:20→22:34)
[2019-06-05] MEDS ORDERED: TOPIRAMATE 25 MG TABLET (FP) ONE ×2 (10:20→22:34)
--- NOTE | 2019-06-05 10:30 | PN ---
Progress Note (short form) - Note Progress Note: Neurology - Admission Chief Complaint: Seizure Activity History of Present Illness: This is a 48 y/o man with a PMHx of Seizures, Asthma, SAMMIE, Vertigo. Who presents to the ED with seizure activity x 4 episodes in 2 days. Patient had 2 seizures on day of admission witnessed by his brother. Patient reported missing his anticonvulsant meds the evening of admission, but generally takes his medications as prescribed. Patient denies fever, chills, cough, MO, dizziness, SOB, CP, palpitations, AP, N/V/D, dysuria. his list includes Keppra 1500 mg twice a day, Trileptal 600 mg twice a day along with Topamax 100 mg twice a day. Of note, he is also on medical marijuana according to medication list. At this time, I would slightly increase Topamax to 150 mg twice a day for improved seizure control. The patient does provide limited history and is unclear in terms of what is exactly a seizure. Since recent event was witnessed, feel that medication increases warranted. Ct head reviewed them without acute changes. Topamax 150mg BID ordered. ppatient reports episodic seizures but none witnessed and possibly pseudoseizures this point. Has multiple other constitutional complaints including headaches and stated that concern for bloody bowel movement though nurse indicates she has not witnessed any of this. Patient not specific and provides limited history when asked further details. Provided reassurance that neurologic exam stable and imaging has been negative. Allergies Allergy/AdvReac Type Severity Reaction Status Date / Time No Known Drug Allergies Allergy Verified 05/05/19 14:13 Active Medications Acetaminophen (Tylenol -) 650 mg PO Q6H PRN PRN Reason: PAIN Last Admin: 06/04/19 16:14 Dose: 650 mg Heparin Sodium (Porcine) (Heparin -) 5,000 unit SQ BID [facility] Last Admin: 06/04/19 21:26 Dose: 5,000 unit Ketorolac Tromethamine (Toradol Injection -) 30 mg IVPUSH Q6H PRN PRN Reason: PAIN LEVEL 7 - 10 Stop: 06/09/19 11:01 Last Admin: 06/04/19 22:42 Dose: 30 mg Levetiracetam (Keppra -) 1,500 mg PO BID [facility] Last Admin: 06/04/19 21:26 Dose: 1,500 mg Miscellaneous (Lidoderm Patch Removal) 1 each MC DAILY@2200 [facility] Last Admin: 06/04/19 21:27 Dose: 1 each Oxcarbazepine (Trileptal) 600 mg PO TID [facility] Last Admin: 06/05/19 06:35 Dose: 600 mg Primidone (Mysoline -) 250 mg PO TID [facility] Last Admin: 06/05/19 06:05 Dose: 250 mg Topiramate 100 mg/ Topiramate (50 mg) 150 mg PO BID [facility] Last Admin: 06/04/19 21:26 Dose: 150 mg Physical Examination Vital Signs: Vital Signs Period Temp Pulse Resp BP Sys/Cr Pulse Ox Last 24 Hr 97.5 F-98.7 F 71-81 18-20 92-114/50-77 Constitutional: Yes: Well Nourished, No Distress, Calm Eyes: Yes: WNL, Conjunctiva Clear, EOM Intact, PERRL HENT: Yes: WNL, Atraumatic, Normocephalic Neck: Yes: WNL, Supple, Trachea Midline Cardiovascular: Yes: WNL, Regular Rate and Rhythm, S1, S2 Respiratory: Yes: WNL, Regular, CTA Bilaterally Gastrointestinal: Yes: WNL, Normal Bowel Sounds, Soft, Abdomen, Obese ...Rectal Exam: Yes: Deferred Renal/: Yes: WNL Breast(s): Yes: WNL Musculoskeletal: Yes: WNL Extremities: Yes: WNL Edema: No Peripheral Pulses WNL: Yes Neurological: cranial nerves intact, moves all extremities equally, no abnormal movements, sensory normal, finger-nose intact CBCD WBC 6.7 K/mm3 (4.0-10.0) 06/04/19 05:30 RBC 4.77 M/mm3 (4.00-5.60) 06/04/19 05:30 Hgb 14.3 GM/dL (11.7-16.9) 06/04/19 05:30 Hct 42.1 % (35.4-49) 06/04/19 05:30 MCV 88.3 fl (80-96) 06/04/19 05:30 MCHC 34.0 g/dl (32.0-35.9) 06/04/19 05:30 RDW 13.9 % (11.9-15.9) 06/04/19 05:30 Plt Count 321 K/MM3 (134-434) 06/04/19 05:30 MPV 6.9 fl (7.5-11.1) L 06/04/19 05:30 CMP Sodium 136 mmol/L (136-145) 06/04/19 05:30 Potassium 3.8 mmol/L (3.5-5.1) 06/04/19 05:30 Chloride 105 mmol/L (98-107) 06/04/19 05:30 Carbon Dioxide 24 mmol/L (21-32) 06/04/19 05:30 Anion Gap 7 MMOL/L (8-16) L 06/04/19 05:30 BUN 15.4 mg/dL (7-18) 06/04/19 05:30 Creatinine 0.9 mg/dL (0.55-1.3) 06/04/19 05:30 Random Glucose 81 mg/dL (74-106) 06/04/19 05:30 Calcium 8.7 mg/dL (8.5-10.1) 06/04/19 05:30 Total Bilirubin 0.4 mg/dL (0.2-1) 06/04/19 05:30 AST 13 U/L (15-37) L 06/04/19 05:30 ALT 25 U/L (13-61) 06/04/19 05:30 Alkaline Phosphatase 71 U/L (45-117) 06/04/19 05:30 Total Protein 5.8 g/dl (6.4-8.2) L 06/04/19 05:30 Albumin 3.1 g/dl (3.4-5.0) L 06/04/19 05:30 Assessment/Plan This is a 48 y/o man with a PMHx of Seizures, Asthma, SAMMIE, Vertigo. Who presents to the ED with seizure activity x 4 episodes in 2 days. Patient had 2 seizures on day of admission witnessed by his brother. Patient reported missing his anticonvulsant meds the evening of admission, but generally takes his medications as prescribed. Patient denies fever, chills, cough, MO, dizziness, SOB, CP, palpitations, AP, N/V/D, dysuria. his list includes Keppra 1500 mg twice a day, Trileptal 600 mg twice a day along with Topamax 100 mg twice a day. Of note, he is also on medical marijuana according to medication list. At this time, I would slightly increase Topamax to 150 mg twice a day for improved seizure control. The patient does provide limited history and is unclear in terms of what is exactly a seizure. Since recent event was witnessed, feel that medication increases warranted. Ct head reviewed them without acute changes. Tomamax 150mg BID ordered. Patient reports episodic seizures but none witnessed and possibly pseudoseizures this point. Has multiple other constitutional complaints including headaches and stated that concern for bloody bowel movement though nurse indicates she has not witnessed any of this. Patient not specific and provides limited history when asked further details. Provided reassurance that neurologic exam stable and imaging has been negative. Continue medical optimization and monitor for infections, replenish electrolytes, adequate hydration recommended, seizure precautions. D/ C planning as per primary.
[2019-06-05] MEDS: HEPARIN NA (PORCINE) 5,000 UNITS/ML 1ML VIAL SQ SCH ×2 (10:47→22:38)
[2019-06-05] MEDS: KETOROLAC TROMETHAMINE 30 MG/1 ML VIAL IVPUSH PRN ×2 (10:47→18:40)
[2019-06-05] MEDS: TOPIRAMATE 100 MG, TOPIRAMATE 50 MG PO SCH ×2 (10:49→22:36)
[2019-06-05] MEDS: levETIRAcetam 500 MG TABLET (FP) PO SCH ×2 (10:49→22:38)
[2019-06-05] MEDS: ACETAMINOPHEN 325 MG TABLET (FP) PO PRN (14:55)
[2019-06-05] MEDS ORDERED: PT OWN MED DRAWER 7, Y5N ONE (22:35)
[2019-06-05] MEDS: LIDOCAINE PATCH REMOVAL MC SCH (22:38)
[2019-06-06] MEDS: OXcarbazepine 300 MG/5 ML 250 ML BULK BOTTLE PO SCH ×2 (05:39→14:36)
[2019-06-06] MEDS: PRIMIDONE 250 MG TABLET PO SCH ×2 (05:40→14:36)
--- NOTE | 2019-06-06 08:13 | DS ---
Physical Examination Vital Signs: Vital Signs Temperature 97.6 F 06/06/19 05:00 Pulse Rate 62 06/06/19 05:00 Respiratory Rate 18 06/05/19 23:00 Blood Pressure 119/54 L 06/06/19 05:00 O2 Sat by Pulse Oximetry (%) 98 06/05/19 21:00 Constitutional: Yes: No Distress Eyes: Yes: WNL HENT: Yes: WNL Cardiovascular: Yes: Regular Rate and Rhythm Respiratory: Yes: WNL Gastrointestinal: Yes: Soft Renal/: Yes: Incontinence Musculoskeletal: Yes: Muscle Weakness Extremities: Yes: Other Edema: No Peripheral Pulses WNL: Yes Integumentary: Yes: WNL Wound/Incision: Yes: Clean/Dry Neurological: Yes: Pre-Existing Deficit ...Motor Strength: LLE, RLE Psychiatric: Yes: Other Labs: CBC, BMP 06/04/19 05:30 06/04/19 05:30 Discharge Summary Reason For Visit: Seizure Current Active Problems Seizure (Acute) Procedures: Principal: ct scan/labs Hospital Course: admitted for seizure disorder, worked up by neurology will need f/u as outpatient for video EEG Condition: Improved - Instructions Diet, Activity, Other Instructions: FOLLOW UP WITH YOUR NEUROLOGIST IN THE NEXT 1-2 DAYS FOR VIDEO EEG PT OUTPATIENT Disposition: VNS/HOME HEALTH CARE - Home Medications Comprehensive Discharge Medication List: Ambulatory Orders Albuterol 0.083% Nebulizer Roshni [Ventolin 0.083% Nebulizer Soln -] 1 neb NEB QID 06/17/16 Albuterol Sulfate Inhaler - [Ventolin HFA Inhaler -] 1 - 2 inh PO Q4H PRN Buspirone HCl [Buspar -] 10 mg PO DAILY 06/17/16 Ergocalciferol [Vitamin D2] 50,000 units PO WEEKLY 06/17/16 Famotidine [Pepcid] 40 mg PO DAILY 06/17/16 Montelukast Na [Singulair -] 10 mg PO BID 06/17/16 Propranolol HCl [Propranolol HCl ER] 20 mg PO DAILY 06/17/16 Tiotropium [place] [Spiriva] 1 inh PO DAILY 06/17/16 Gabapentin [Neurontin -] 300 mg PO Q8H 03/05/17 Ibuprofen 800 mg PO BID PRN 03/05/17 Medical Marijuana [Medical Marijuana Oil] 8 mg PO BID #30 tab MDD 2 03/30/17 levETIRAcetam [Keppra -] 1,500 mg PO BID 03/30/17 Oxcarbazepine [Trileptal -] 600 mg PO BID 07/20/17 Cetirizine HCl [Zyrtec -] 10 mg PO HS 03/08/19 Fluticasone/Vilanterol [Breo Ellipta 100-25 Mcg INH] 1 each IH DAILY 03/08/19 Primidone 250 mg PO DAILY 03/08/19 Cyclobenzaprine HCl [Flexeril 10 mg] 10 mg PO HS PRN #7 tablet 05/05/19 Acetaminophen [Tylenol .Regular Strength -] 650 mg PO Q6H PRN #90 tablet MDD 6 06/06/19 Oxcarbazepine [Trileptal Susp 300 mg/5 mL -] 600 mg PO TID #450 ml 06/06/19 Primidone [Mysoline -] 250 mg PO TID 30 Days #90 tablet 06/06/19 Topiramate [Topamax -] 150 mg PO BID #60 tablet 06/06/19 levETIRAcetam [Keppra -] 1,500 mg PO BID 30 Days #60 tablet 06/06/19
[2019-06-06] MEDS ORDERED: TOPIRAMATE 100 MG TABLET ONE (09:04)
[2019-06-06] MEDS ORDERED: TOPIRAMATE 25 MG TABLET (FP) ONE (09:04)
--- NOTE | 2019-06-06 09:51 | PN ---
Progress Note (short form) - Note Progress Note: Neurology - Admission Chief Complaint: Seizure Activity History of Present Illness: This is a 48 y/o man with a PMHx of Seizures, Asthma, SAMMIE, Vertigo. Who presents to the ED with seizure activity x 4 episodes in 2 days. Patient had 2 seizures on day of admission witnessed by his brother. Patient reported missing his anticonvulsant meds the evening of admission, but generally takes his medications as prescribed. Patient denies fever, chills, cough, MO, dizziness, SOB, CP, palpitations, AP, N/V/D, dysuria. his list includes Keppra 1500 mg twice a day, Trileptal 600 mg twice a day along with Topamax 100 mg twice a day. Of note, he is also on medical marijuana according to medication list. At this time, I would slightly increase Topamax to 150 mg twice a day for improved seizure control. The patient does provide limited history and is unclear in terms of what is exactly a seizure. Since recent event was witnessed, feel that medication increase was warranted. Ct head reviewed them without acute changes. Topamax 150mg BID continued. No witnessed seizure events , plan per pcp is for discharge. Patient ambulating the bathroom this morning without any complaints. Allergies Allergy/AdvReac Type Severity Reaction Status Date / Time No Known Drug Allergies Allergy Verified 05/05/19 14:13 Active Medications Acetaminophen (Tylenol -) 650 mg PO Q6H PRN PRN Reason: PAIN Last Admin: 06/05/19 14:55 Dose: 650 mg Heparin Sodium (Porcine) (Heparin -) 5,000 unit SQ BID [facility] Last Admin: 06/05/19 22:38 Dose: 5,000 unit Ketorolac Tromethamine (Toradol Injection -) 30 mg IVPUSH Q6H PRN PRN Reason: PAIN LEVEL 7 - 10 Stop: 06/09/19 11:01 Last Admin: 06/05/19 18:40 Dose: 30 mg Levetiracetam (Keppra -) 1,500 mg PO BID [facility] Last Admin: 06/05/19 22:38 Dose: 1,500 mg Miscellaneous (Lidoderm Patch Removal) 1 each MC DAILY@2200 [facility] Last Admin: 06/05/19 22:38 Dose: Not Given Oxcarbazepine (Trileptal) 600 mg PO TID [facility] Last Admin: 06/06/19 05:39 Dose: 600 mg Primidone (Mysoline -) 250 mg PO TID [facility] Last Admin: 06/06/19 05:40 Dose: 250 mg Topiramate 100 mg/ Topiramate (50 mg) 150 mg PO BID [facility] Last Admin: 06/05/19 22:36 Dose: 150 mg Physical Examination Vital Signs: Vital Signs Period Temp Pulse Resp BP Sys/Cr Pulse Ox Last 24 Hr 97.6 F-98 F 62-79 18-18 109-119/54-72 98 Constitutional: Yes: Well Nourished, No Distress, Calm Eyes: Yes: WNL, Conjunctiva Clear, EOM Intact, PERRL HENT: Yes: WNL, Atraumatic, Normocephalic Neck: Yes: WNL, Supple, Trachea Midline Cardiovascular: Yes: WNL, Regular Rate and Rhythm, S1, S2 Respiratory: Yes: WNL, Regular, CTA Bilaterally Gastrointestinal: Yes: WNL, Normal Bowel Sounds, Soft, Abdomen, Obese ...Rectal Exam: Yes: Deferred Renal/: Yes: WNL Breast(s): Yes: WNL Musculoskeletal: Yes: WNL Extremities: Yes: WNL Edema: No Peripheral Pulses WNL: Yes Neurological: cranial nerves intact, moves all extremities equally, no abnormal movements, sensory normal, finger-nose intact CBCD WBC 6.7 K/mm3 (4.0-10.0) 06/04/19 05:30 RBC 4.77 M/mm3 (4.00-5.60) 06/04/19 05:30 Hgb 14.3 GM/dL (11.7-16.9) 06/04/19 05:30 Hct 42.1 % (35.4-49) 06/04/19 05:30 MCV 88.3 fl (80-96) 06/04/19 05:30 MCHC 34.0 g/dl (32.0-35.9) 06/04/19 05:30 RDW 13.9 % (11.9-15.9) 06/04/19 05:30 Plt Count 321 K/MM3 (134-434) 06/04/19 05:30 MPV 6.9 fl (7.5-11.1) L 06/04/19 05:30 CMP Sodium 136 mmol/L (136-145) 06/04/19 05:30 Potassium 3.8 mmol/L (3.5-5.1) 06/04/19 05:30 Chloride 105 mmol/L (98-107) 06/04/19 05:30 Carbon Dioxide 24 mmol/L (21-32) 06/04/19 05:30 Anion Gap 7 MMOL/L (8-16) L 06/04/19 05:30 BUN 15.4 mg/dL (7-18) 06/04/19 05:30 Creatinine 0.9 mg/dL (0.55-1.3) 06/04/19 05:30 Random Glucose 81 mg/dL (74-106) 06/04/19 05:30 Calcium 8.7 mg/dL (8.5-10.1) 06/04/19 05:30 Total Bilirubin 0.4 mg/dL (0.2-1) 06/04/19 05:30 AST 13 U/L (15-37) L 06/04/19 05:30 ALT 25 U/L (13-61) 06/04/19 05:30 Alkaline Phosphatase 71 U/L (45-117) 06/04/19 05:30 Total Protein 5.8 g/dl (6.4-8.2) L 06/04/19 05:30 Albumin 3.1 g/dl (3.4-5.0) L 06/04/19 05:30 Assessment/Plan 48 y/o man with a PMHx of Seizures, Asthma, SAMMIE, Vertigo. Who presents to the ED with seizure activity x 4 episodes in 2 days. Patient had 2 seizures on day of admission witnessed by his brother. Patient reported missing his anticonvulsant meds the evening of admission, but generally takes his medications as prescribed. Patient denies fever, chills, cough, MO, dizziness, SOB, CP, palpitations, AP, N/V/D, dysuria. his list includes Keppra 1500 mg twice a day, Trileptal 600 mg twice a day along with Topamax 100 mg twice a day. Of note, he is also on medical marijuana according to medication list. At this time, I would slightly increase Topamax to 150 mg twice a day for improved seizure control. The patient does provide limited history and is unclear in terms of what is exactly a seizure. Since recent event was witnessed, feel that medication increase was warranted. Ct head reviewed them without acute changes. Topamax 150mg BID continued. No witnessed seizure events , plan per pcp is for discharge. Patient ambulating the bathroom this morning without any complaints. D/C planning as per primary.
[2019-06-06] MEDS: HEPARIN NA (PORCINE) 5,000 UNITS/ML 1ML VIAL SQ SCH (09:52)
[2019-06-06] MEDS: TOPIRAMATE 100 MG, TOPIRAMATE 50 MG PO SCH (09:52)
[2019-06-06] MEDS: levETIRAcetam 500 MG TABLET (FP) PO SCH (09:52)
[2019-06-06] MEDS ORDERED: PT OWN MED DRAWER 7, Y5N ONE (13:50)
[2019-06-06 17:39] VITALS: BP 121/75; PULSE 75; TEMP 97.5
== END 2019-06-06 18:44 | disposition home or self-care (01) | DRG 101 ==
LOC: JER 18:37 → JERBED 06-03 00:17 → J8W 06-03 03:33
PROVIDERS: ADMIT Family Medicine; ATTEND Family Medicine
DX: G40.909 Epilepsy, unspecified, not intractable, without status epilepticus (principal); J45.909 Unspecified asthma, uncomplicated; G47.33 Obstructive sleep apnea (adult) (pediatric); F41.9 Anxiety disorder, unspecified; M48.10 Ankylosing hyperostosis [Forestier], site unspecified; G43.901 Migraine, unspecified, not intractable, with status migrainosus; R42 Dizziness and giddiness
CPT/HCPCS: 36415; 70450-TC; 71045-TC-FY; 80048; 80053; 80177; 80184; 80185; 81003; 83605; 85025; 85027; 87086; 93005; 93010; 97116-GP; 99284-25; J1644

== ENCOUNTER 2019-07-15 16:24 | Inpatient (IN) | payer OTHER ==
--- NOTE | 2019-07-15 17:23 | PDOC ---
History of Present Illness - General Chief Complaint: Migraine Headache Stated Complaint: SEIZURES Time Seen by Provider: 07/15/19 17:22 - History of Present Illness Initial Comments: 07/15/19 18:40 48 y/o M hx of seizures, migraines,SAMMIE, asthma, vertigo presents today with migraine, headache.He has had this pain daily for about a month and a half. Pain waxes and wanes but never completely goes away. He describes the pain as pounding 10/10 pain all around his head. Was prompted to come to the ER when he began to feel tingling in his left hand and forearm 3 days ago. He endorses photophobia, phonophobia. He denies blurry vision, nausea, vomiting, head trauma , weakness, lightheadedness or dizziness. He was admitted in May for recurrent seizures. Head CT at the time showed no acute intracranial pathology. 07/15/19 18:56 Past History - Past Medical History Allergies/Adverse Reactions: Allergies Allergy/AdvReac Type Severity Reaction Status Date / Time No Known Drug Allergies Allergy Verified 07/15/19 16:41 Home Medications: Ambulatory Orders Albuterol 0.083% Nebulizer Roshni [Ventolin 0.083% Nebulizer Soln -] 1 neb NEB QID 06/17/16 Albuterol Sulfate Inhaler - [Ventolin HFA Inhaler -] 1 - 2 inh PO Q4H PRN Buspirone HCl [Buspar -] 10 mg PO DAILY 06/17/16 Ergocalciferol [Vitamin D2] 50,000 units PO WEEKLY 06/17/16 Famotidine [Pepcid] 40 mg PO DAILY 06/17/16 Montelukast Na [Singulair -] 10 mg PO BID 06/17/16 Propranolol HCl [Propranolol HCl ER] 20 mg PO DAILY 06/17/16 Tiotropium [place] [Spiriva] 1 inh PO DAILY 06/17/16 Gabapentin [Neurontin -] 300 mg PO Q8H 03/05/17 Ibuprofen 800 mg PO BID PRN 03/05/17 Medical Marijuana [Medical Marijuana Oil] 8 mg PO BID #30 tab MDD 2 03/30/17 levETIRAcetam [Keppra -] 1,500 mg PO BID 03/30/17 Oxcarbazepine [Trileptal -] 600 mg PO BID 07/20/17 Cetirizine HCl [Zyrtec -] 10 mg PO HS 03/08/19 Fluticasone/Vilanterol [Breo Ellipta 100-25 Mcg INH] 1 each IH DAILY 03/08/19 Primidone 250 mg PO DAILY 03/08/19 Cyclobenzaprine HCl [Flexeril 10 mg] 10 mg PO HS PRN #7 tablet 05/05/19 Acetaminophen [Tylenol .Regular Strength -] 650 mg PO Q6H PRN #90 tablet MDD 6 06/06/19 Oxcarbazepine [Trileptal Susp 300 mg/5 mL -] 600 mg PO TID #450 ml 06/06/19 Primidone [Mysoline -] 250 mg PO TID 30 Days #90 tablet 06/06/19 Topiramate [Topamax -] 150 mg PO BID #60 tablet 06/06/19 levETIRAcetam [Keppra -] 1,500 mg PO BID 30 Days #60 tablet 06/06/19 Anemia: No Asthma: Yes Cancer: No Cardiac Disorders: No CVA: No COPD: No CHF: No Dementia: No Diabetes: (hypoglycemia) GI Disorders: No Disorders: No HTN: No Hypercholesterolemia: No Liver Disease: No Seizures: Yes (epilepsy-last one 02/27/19) Thyroid Disease: No - Surgical History Abdominal Surgery: No Appendectomy: No Cardiac Surgery: No Cholecystectomy: No Lung Surgery: No Neurologic Surgery: No Orthopedic Surgery: Yes (heel spur left heel; carpal tunnel release, ) - Immunization History Immunization Up to Date: Yes - Psycho Social/Smoking Cessation Hx Smoking Status: No Smoking History: Unknown if ever smoked Have you smoked in the past 12 months: No Number of Cigarettes Smoked Daily: 0 Hx Alcohol Use: No Drug/Substance Use Hx: Yes (MEDICAL MARIJUANA, LIQUID FORM) Substance Use Type: Marijuana Hx Substance Use Treatment: No Review of Systems - Review of Systems Constitutional: No: Chills, Fever HEENTM: No: Eye Pain, Blurred Vision Respiratory: No: Cough, Shortness of Breath Cardiac (ROS): No: Chest Pain, Lightheadedness ABD/GI: No: Diarrhea, Nausea, Abdominal cramping : No: Burning, Dysuria Musculoskeletal: Yes: Back Pain. No: Joint Pain Integumentary: No: Bruising, Change in Color Neurological: Yes: Headache, Paresthesia Hematologic/Lymphatic: No: Anemia, Blood Clots *Physical Exam - Vital Signs Last Vital Signs Temp Pulse Resp BP Pulse Ox 97.9 F 72 18 115/70 98 07/15/19 16:41 07/15/19 16:41 07/15/19 16:41 07/15/19 16:41 07/15/19 16:41 - Physical Exam Comments: 07/15/19 18:45 PE: GENERAL: Awake, alert, and fully oriented, in no acute distress HEAD: No signs of trauma, normocephalic, atraumatic EYES: EOMI, sclera anicteric, conjunctiva clear ENT: Auricles normal inspection, hearing grossly normal, nares patent, oropharynx clear without exudates. Moist mucosa NECK: Normal ROM, supple, no lymphadenopathy, JVD, or masses LUNGS: No distress, speaks full sentences, clear to auscultation bilaterally HEART: Regular rate and rhythm, normal S1 and S2, no murmurs, rubs or gallops, peripheral pulses normal and equal bilaterally. ABDOMEN: Soft, nontender, normoactive bowel sounds. No guarding, no rebound. No masses EXTREMITIES : Normal inspection, Normal range of motion, no edema. No clubbing or cyanosis NEUROLOGICAL: Cranial nerves II through XII grossly intact. Walks with a cane, not different from baseline. (-) finger to nose test. sensation intact lower and upper extremities. 5/5 strength upper and lower extremities. SKIN: Warm, Dry, normal turgor, no rashes or lesions noted ED Treatment Course - LABORATORY CBC & Chemistry Diagram: 07/15/19 18:27 07/15/19 18:27 Medical Decision Making - Medical Decision Making 07/15/19 18:47 48 y/o M hx of seizures, migraines presents today with migraine headache cbc, cmp Meds: toradol, reglan, normal saline, benadryl 07/15/19 18:55 CT; 06/02/2019 no acute intracranial pathology no definite interval change in comparison to prior CT study of 10/30/2018 Discharge - Follow up/Referral Referrals: Arian Garcia MD [Primary Care Provider] - - Patient Discharge Instructions - Post Discharge Activity
--- NOTE | 2019-07-15 17:25 | PDOC ---
Attending Attestation - Resident Resident Name: Richa Hoff - ED Attending Attestation I have performed the following: I have examined & evaluated the patient, The case was reviewed & discussed with the resident, I agree w/resident's findings & plan, Exceptions are as noted - HPI HPI: 07/15/19 18:21 48y M hx of seizures (compliant with meds), migraines presents with complaint of migrine/headache for the past efw days, notes that he has had tingling on his left arm. headache is a b/l pounding around his head, diffuse, associated with photophobia and phonophobia, no improvement with tylenol. Denies any vision changes, numbness/weakness, fever/chills, n/v, cp, sob, palptiationss. pt notpes the nature of his headache feels consistent with prior headaches. denies any recent trauma. notes he has not been sleeping very well, usually about 3-4 hrs a night. pt sees dr. Meza (neurologist at [facility]) GENERAL: The patient is awake, alert, and fully oriented, Nontoxic - in no acute distress. HEAD: Normocephalic, atraumatic. EYES: extraocular movements intact, sclera anicteric, conjunctiva clear. PERRL ENT: Normal voice, dry mucous membranes. NECK: Normal range of motion, supple LUNGS: Breath sounds equal, clear to auscultation bilaterally. No wheezes, no rhonchi, no rales. HEART: Regular rate and rhythm, normal S1 and S2 without murmur, rub or gallop. ABDOMEN: Soft, nontender, No guarding, no rebound. No CVA tenderness EXTREMITIES: Normal range of motion, no edema. NEUROLOGICAL: No facial assymetry, Normal speech, teaching specialists strenth symmetric, sensation symmetric on upper/lower extremities, PSYCH: Normal mood, normal affect. SKIN: Warm, Dry, normal turgor, suspect migraine headache no focal neuro findings will give reglan/fluids will reassess - Physicial Exam PE: 07/17/19 08:28 matias liang - Medical Decision Making 07/15/19 19:00 signed out to evening team to reassess and dispo
[2019-07-15] MEDS ORDERED: KETOROLAC TROMETHAMINE 30 MG/1 ML VIAL IVPUSH ONE (17:58)
[2019-07-15] MEDS ORDERED: SODIUM CHLORIDE 0.9% 500 ML INFUS.BAG IV ONE (17:58)
[2019-07-15] MEDS ORDERED: METOCLOPRAMIDE HCL INJECTION 10 MG/2 ML VIAL IVPUSH ONE (17:58)
[2019-07-15 18:46] LABS: BASO % 0.8 % (0-2.0); EOS % 0.8 % (0-4.5); HEMATOCRIT 45.4 % (35.4-49); HEMOGLOBIN 15.5 GM/dL (11.7-16.9); LYMPH % 28.6 % (8-40); MCH 30.7 pg (25.7-33.7); MCHC 34.2 g/dl (32.0-35.9); MEAN CELL VOLUME 89.6 fl (80-96); MEAN PLT VOLUME 7.4 fl (7.5-11.1); MONO % 7.7 % (3.8-10.2); NEUT % 62.1 % (42.8-82.8); PLATELET COUNT 360 K/MM3 (134-434); RBC 5.06 M/mm3 (4.00-5.60); RDW 14.2 % (11.9-15.9)
[2019-07-15] MEDS ORDERED: METOCLOPRAMIDE HCL INJECTION 10 MG/2 ML VIAL ONE (19:17)
[2019-07-15] MEDS ORDERED: KETOROLAC TROMETHAMINE 30 MG/1 ML VIAL ONE (19:17)
--- NOTE | 2019-07-15 19:19 | PDOC ---
*Physical Exam - Vital Signs Last Vital Signs Temp Pulse Resp BP Pulse Ox 97.9 F 72 18 115/70 98 07/15/19 16:41 07/15/19 16:41 07/15/19 16:41 07/15/19 16:41 07/15/19 16:41 ED Treatment Course - LABORATORY CBC & Chemistry Diagram: 07/15/19 18:27 07/15/19 19:27 - ADDITIONAL ORDERS Additional order review: 07/15/19 18:27 RBC 5.06 MCV 89.6 MCHC 34.2 RDW 14.2 MPV 7.4 L Neutrophils % 62.1 Lymphocytes % 28.6 D Monocytes % 7.7 Eosinophils % 0.8 Basophils % 0.8 Medical Decision Making - Medical Decision Making 07/15/19 19:17 sign out from day team 48y M with PMH of seizures, migraines,SAMMIE, asthma, vertigo presents today with migraine, headache x 1.5 months. Described as pounding an diffuse around the head. Waxing and waning in consistency. Has neuro appointment in [place] . basic labs ordered -iv fluids, toradol, benadryl, reglan. Had CT of head 1-2 months ago with no acute pathology reassess 07/16/19 06:41 pt not feeling better, pain same as before, still has photophobia. will give compazine, mg, ofirmev and decadron. ct head given continuous pain and numbness in L hand without exam findings of numbness. CT head normal; no changes. still in pain. will admit for intractable headache. pt given evening doses of antiepileptics. Discharge - Discharge Information Problems reviewed: Yes Clinical Impression/Diagnosis: Headache Qualifiers: Headache type: unspecified Headache chronicity pattern: acute headache Intractability: intractable Qualified Code(s): R51 - Headache Condition: Stable - Admission Yes - Follow up/Referral - Patient Discharge Instructions - Post Discharge Activity
[2019-07-15] MEDS ORDERED: ACETAMINOPHEN 1000 MG/100 ML VIAL (NON FORMULARY) IVPB ONE (20:35)
[2019-07-15 20:40] LABS: ALBUMIN 3.7 g/dl (3.4-5.0); BILIRUBIN,TOTAL 0.2 mg/dL (0.2-1); BLOOD UREA NITROGEN 16.4 mg/dL (7-18); CALCIUM 8.9 mg/dL (8.5-10.1); CREATININE 0.9 mg/dL (0.55-1.3); POTASSIUM 3.9 mmol/L (3.5-5.1); TOT PROT 6.5 g/dl (6.4-8.2)
[2019-07-15] MEDS ORDERED: DEXAMETHASONE SOD PHOSPHATE 10 MG/1 ML VIAL IVPUSH ONE (20:48)
[2019-07-15] MEDS ORDERED: MAGNESIUM SULF 50% (8.12 MEQ/2 ML-1 GM VIAL) IVPB ONE (20:48)
[2019-07-15] MEDS ORDERED: PROCHLORPERAZINE INJECTION 10 MG/2 ML VIAL IVPB ONE ×2 (20:48→21:30)
[2019-07-15] MEDS ORDERED: levETIRAcetam 500 MG TABLET (FP) PO ONE ×2 (20:55→21:20)
[2019-07-15] MEDS ORDERED: ACETAMINOPHEN INJECTION 100 ML IVPB ONE (21:17)
[2019-07-15] MEDS ORDERED: DEXAMETHASONE SOD PHOSPHATE 10 MG/1 ML VIAL ONE (21:19)
[2019-07-15] MEDS ORDERED: MAGNESIUM 1GM/D5W - 1 GM/100 ML IVPB IVPB ONE (22:07)
[2019-07-15] MEDS ORDERED: TOPIRAMATE 25 MG TABLET (FP) PO ONE (23:54)
--- NOTE | 2019-07-16 01:30 | HP ---
Admitting History and Physical - Primary Care Physician PCP: Dr. Lockett - Admission Chief Complaint: Migraine, headache History of Present Illness: 48 year old male with PMHx of seizures, migraines,SAMMIE, asthma, vertigo presents today with migraine, headache. As per patient migraine/headache has been occurring for month and a half, Pain is constant, pounding at time, occipital headache followed by pain in the neck, patient began to feel tingling in his left hand and forearm 3 days ago which brought patient to the ER today. Patient endorses photophobia, phonophobia. Patient denies blurry vision, nausea , vomiting, head trauma, weakness, lightheadedness or dizziness. He was admitted in May for recurrent seizures. Head CT at the time showed no acute intracranial pathology. 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 Pulmonary: Yes: Asthma - Past Surgical History Additional Past Surgical History: heel spur left heel; carpal tunnel release - Smoking History Smoking history: Unknown if ever smoked Have you smoked in the past 12 months: No Aproximately how many cigarettes per day: 0 - Alcohol/Substance Use Hx Alcohol Use: No History of Substance Use: reports: None - Social History ADL: Independent History of Recent Travel: No Home Medications - Allergies Allergies/Adverse Reactions: Allergies Allergy/AdvReac Type Severity Reaction Status Date / Time No Known Drug Allergies Allergy Verified 07/15/19 16:41 - Home Medications Home Medications: Ambulatory Orders Albuterol Sulfate Inhaler - [Ventolin HFA Inhaler -] 1 - 2 inh PO Q4H PRN Propranolol HCl [Propranolol HCl ER] 20 mg PO DAILY 06/17/16 Medical Marijuana [Medical Marijuana Oil] 8 mg PO BID #30 tab MDD 2 03/30/17 levETIRAcetam [Keppra -] 1,500 mg PO BID 03/30/17 Fluticasone/Vilanterol [Breo Ellipta 100-25 Mcg INH] 1 each IH DAILY 03/08/19 Acetaminophen [Tylenol .Regular Strength -] 650 mg PO Q6H PRN #90 tablet MDD 6 06/06/19 Primidone [Mysoline -] 250 mg PO TID 30 Days #90 tablet 06/06/19 Topiramate [Topamax -] 150 mg PO BID #60 tablet 06/06/19 Baclofen 10 mg PO DAILY 07/15/19 Diclofenac Sodium [Diclofenac Sodium ER] 100 mg PO DAILY 07/15/19 Meclizine HCl 25 mg PO DAILY 07/15/19 Oxcarbazepine [Trileptal Susp 300 mg/5 mL -] 600 mg PO BID 07/15/19 Pregabalin [Lyrica -] 75 mg PO DAILY 07/15/19 Family Medical History Family History: Denies Review of Systems - Review of Systems Constitutional: reports: No Symptoms Eyes: reports: No Symptoms HENT: reports: No Symptoms Neck: reports: Tenderness Cardiovascular: reports: No Symptoms Respiratory: reports: No Symptoms Gastrointestinal: reports: No Symptoms Genitourinary: reports: No Symptoms Musculoskeletal: reports: No Symptoms Integumentary: reports: No Symptoms Neurological: reports: Headache Endocrine: reports: No Symptoms Hematology/Lymphatic: reports: No Symptoms Psychiatric: reports: No Symptoms Physical Examination Vital Signs: Vital Signs Temperature 97.9 F 07/15/19 16:41 Pulse Rate 72 07/15/19 16:41 Respiratory Rate 18 07/15/19 16:41 Blood Pressure 115/70 07/15/19 16:41 O2 Sat by Pulse Oximetry (%) 98 07/15/19 16:41 Constitutional: Yes: No Distress, Calm, Obese Eyes: Yes: Conjunctiva Clear, EOM Intact HENT: Yes: Atraumatic, Normocephalic Neck: Yes: Supple, Trachea Midline Cardiovascular: Yes: Regular Rate and Rhythm Respiratory: Yes: Regular, CTA Bilaterally Gastrointestinal: Yes: Normal Bowel Sounds, Soft Renal/: Yes: WNL Musculoskeletal: Yes: WNL Extremities: Yes: WNL Edema: No Peripheral Pulses WNL: Yes Neurological: Yes: Alert, Oriented Psychiatric: Yes: Alert, Oriented Labs: CBC, BMP 07/15/19 18:27 07/15/19 19:27 Imaging - Results Cat Scan: Report Reviewed (CT head: no acute pathology) Problem List - Problems (1) Migraine Code(s): G43.909 - MIGRAINE, UNSP, NOT INTRACTABLE, WITHOUT STATUS MIGRAINOSUS (2) Headache Code(s): R51 - HEADACHE (3) Vertigo Code(s): R42 - DIZZINESS AND GIDDINESS (4) GERD (gastroesophageal reflux disease) Code(s): K21.9 - GASTRO-ESOPHAGEAL REFLUX DISEASE WITHOUT ESOPHAGITIS (5) Seizure Code(s): R56.9 - UNSPECIFIED CONVULSIONS (6) Anxiety and depression Code(s): F41.9 - ANXIETY DISORDER, UNSPECIFIED; F32.9 - MAJOR DEPRESSIVE DISORDER, SINGLE EPISODE, UNSPECIFIED (7) Asthma Code(s): J45.909 - UNSPECIFIED ASTHMA, UNCOMPLICATED Qualifiers: Asthma severity: mild intermittent Asthma complication type: with acute exacerbation (8) Seizure disorder Code(s): G40.909 - EPILEPSY, UNSP, NOT INTRACTABLE, WITHOUT STATUS EPILEPTICUS Assessment/Plan 48 year old male with PMHx of seizures, migraines,SAMMIE, asthma, vertigo presents today with migraine, headache. As per patient migraine/headache has been occurring for month and a half, Pain is constant, pounding at time, occipital headache followed by pain in the neck, patient began to feel tingling in his left hand and forearm 3 days ago which brought patient to the ER today. Patient endorses photophobia, phonophobia. Patient denies blurry vision, nausea , vomiting, head trauma, weakness, lightheadedness or dizziness. He was admitted in May for recurrent seizures. Head CT at the time showed no acute intracranial pathology. # Migraine/headache - CT head: negative - in ED given tylenol, tordol, decadron without relief - continue with Propranolol HCl 20 mg PO DAILY - follow up neurology in AM #seizure - levETIRAcetam 1,500 mg PO BID - Topiramate 150 mg PO BID - Primidone 250 mg PO TID - Oxcarbazepine 600 mg PO TID - Oxcarbazepine 600 mg PO BID - continue with lyrica #vertigo - continue with meclinzine 25 mg daily #anxiety/Depression - Buspirone HCl 10 mg PO DAILY #Asthma -nebs pRN -Montelukast Na 10 mg PO BID #Gerd - Famotidine 40 mg PO DAILY Diet: regular DVT PPX: heparin Visit type - Emergency Visit Emergency Visit: Yes ED Registration Date: 07/16/19 Care time: The patient presented to the Emergency Department on the above date and was hospitalized for further evaluation of their emergent condition. - New Patient This patient is new to me today: Yes Date on this admission: 07/16/19 - Critical Care Critical Care patient: No
[2019-07-16 02:57] VITALS: BMI 33.6
[2019-07-16] MEDS: PRIMIDONE 250 MG TABLET PO SCH ×3 (06:26→22:51)
[2019-07-16] MEDS ORDERED: PT OWN MED DRAWER 7, Y5N ONE (09:23)
[2019-07-16] MEDS: levETIRAcetam 500 MG TABLET (FP) PO SCH ×2 (09:36→22:51)
[2019-07-16] MEDS: HEPARIN NA (PORCINE) 5,000 UNITS/ML 1ML VIAL SQ SCH ×2 (09:37→22:49)
[2019-07-16] MEDS ORDERED: DICLOFENAC SODIUM 25 MG TABLET.DR PO SCH (10:00)
[2019-07-16] MEDS ORDERED: MECLIZINE HCL 25 MG TABLET (FP) PO SCH (10:00)
[2019-07-16] MEDS ORDERED: PREGABALIN 75 MG CAPSULE PO SCH (10:00)
[2019-07-16] MEDS ORDERED: TOPIRAMATE 100 MG TABLET PO SCH (10:00)
[2019-07-16] MEDS ORDERED: BACLOFEN 10 MG TABLET (FP) PO SCH (10:00)
[2019-07-16] MEDS: TOPIRAMATE 100 MG, TOPIRAMATE 50 MG PO SCH ×2 (11:19→22:56)
[2019-07-16] MEDS: OXcarbazepine 300 MG TABLET (UD) PO SCH ×2 (11:20→22:53)
--- NOTE | 2019-07-16 13:23 | PN ---
Progress Note, Physician Chief Complaint: Migraines Seizures History of Present Illness: Previous notes and events reviewed awake and alert NAD complain of frontal headache with light sensitivity Head CT scan reviewed L arm numbness from hands to elbow, denies loss of sensation - Current Medication List Current Medications: Active Medications Baclofen (Lioresal -) 10 mg PO DAILY [facility] Last Admin: 07/16/19 09:36 Dose: 10 mg Diclofenac Sodium (Voltaren -) 100 mg PO DAILY [facility] Last Admin: 07/16/19 11:20 Dose: 100 mg Heparin Sodium (Porcine) (Heparin -) 5,000 unit SQ BID [facility] Last Admin: 07/16/19 09:37 Dose: 5,000 unit Levetiracetam (Keppra -) 1,500 mg PO BID [facility] Last Admin: 07/16/19 09:36 Dose: 1,500 mg Meclizine HCl (Antivert -) 25 mg PO DAILY [facility] Last Admin: 07/16/19 09:37 Dose: 25 mg Oxcarbazepine (Trileptal -) 600 mg PO BID [facility] Last Admin: 07/16/19 11:20 Dose: 600 mg Pregabalin (Lyrica -) 75 mg PO DAILY [facility] Last Admin: 07/16/19 09:37 Dose: 75 mg Primidone (Mysoline -) 250 mg PO TID [facility] Last Admin: 07/16/19 06:26 Dose: 250 mg Propranolol HCl (Inderal -) 20 mg PO DAILY [facility] Last Admin: 07/16/19 11:20 Dose: 20 mg Topiramate 100 mg/ Topiramate (50 mg) 150 mg PO BID [facility] Last Admin: 07/16/19 11:19 Dose: 150 mg - Objective Vital Signs: Vital Signs Temperature 98 F 07/16/19 06:00 Pulse Rate 67 07/16/19 06:00 Respiratory Rate 20 07/16/19 06:00 Blood Pressure 107/65 07/16/19 06:00 O2 Sat by Pulse Oximetry (%) 96 07/16/19 02:19 Constitutional: Yes: No Distress, Calm Eyes: Yes: Conjunctiva Clear HENT: Yes: Atraumatic Cardiovascular: Yes: Regular Rate and Rhythm Respiratory: Yes: Regular, CTA Bilaterally Gastrointestinal: Yes: Normal Bowel Sounds, Soft Musculoskeletal: Yes: WNL Extremities: Yes: WNL Neurological: Yes: Alert, Oriented, Other (no facial droop, no slurred speech) Psychiatric: Yes: Alert, Oriented Labs: CBC, BMP 07/15/19 18:27 07/15/19 19:27 Problem List - Problems (1) Migraine Assessment/Plan: -Neurology consult -neuro checks q4h -Head CT scan shows no acute evidence of intracranial pathology -Topamax, Propanolol Code(s): G43.909 - MIGRAINE, UNSP, NOT INTRACTABLE, WITHOUT STATUS MIGRAINOSUS (2) Seizure Assessment/Plan: -Trileptal, Keppra -seizure precautions Code(s): R56.9 - UNSPECIFIED CONVULSIONS Assessment/Plan see problem list dvt ppx
--- NOTE | 2019-07-16 17:45 | CONSULT ---
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 On multiple meds with poor compliance suggested by periodic AED level monitoring. Last seizure 2 weeks ago. Daily headaches. "new" numbness left arm and hand (diffusely when inactive. Improved by movts. Exam unchanged and normal. Eating comfortably. In NAD IMP: Migraine headaches Complex partial seizures RLS Suggest: Orders written. Avoid tylenol, tramadol. D/C baclofen, meclizine Agree with increased topiramate to 150 q 12 hrs Increase lyrica to 75 mg q12 hrs Resume pramipexole 0.5 mg BID Decrease primidone to 250 qHS Continue oxcarbazepine 600 mg q12hrs Cont. levetiracetam at 1500 mg q 12hrs. Neuro f/u as out patient Encourage compliance with meds. Thank you very much, Awais Bradley MD
[2019-07-16] MEDS: PREGABALIN 75 MG CAPSULE PO SCH (22:52)
[2019-07-16] MEDS ORDERED: OXcarbazepine 300 MG TABLET (UD) PO ONE (23:55)
[2019-07-17] MEDS ORDERED: PT OWN MED DRAWER 7, Y5N ONE ×2 (06:18→09:48)
[2019-07-17 07:50] LABS: HEMATOCRIT 41.6 % (35.4-49); HEMOGLOBIN 14.2 GM/dL (11.7-16.9); MCH 30.5 pg (25.7-33.7); MCHC 34.1 g/dl (32.0-35.9); MEAN CELL VOLUME 89.3 fl (80-96); MEAN PLT VOLUME 7.7 fl (7.5-11.1); PLATELET COUNT 293 K/MM3 (134-434); RBC 4.66 M/mm3 (4.00-5.60)
[2019-07-17 08:18] LABS: ALBUMIN 3.2 g/dl (3.4-5.0); BILIRUBIN,TOTAL 0.5 mg/dL (0.2-1); BLOOD UREA NITROGEN 12.2 mg/dL (7-18); CALCIUM 8.4 mg/dL (8.5-10.1); CREATININE 0.9 mg/dL (0.55-1.3); POTASSIUM 3.5 mmol/L (3.5-5.1); TOT PROT 5.5 g/dl (6.4-8.2)
[2019-07-17] MEDS: HEPARIN NA (PORCINE) 5,000 UNITS/ML 1ML VIAL SQ SCH ×2 (09:52→21:51)
[2019-07-17] MEDS: TOPIRAMATE 100 MG, TOPIRAMATE 50 MG PO SCH ×2 (09:55→21:51)
[2019-07-17] MEDS: PREGABALIN 75 MG CAPSULE PO SCH ×2 (09:57→21:50)
[2019-07-17] MEDS: OXcarbazepine 300 MG TABLET (UD) PO SCH ×2 (09:58→21:52)
[2019-07-17] MEDS: levETIRAcetam 500 MG TABLET (FP) PO SCH ×2 (10:00→21:50)
--- NOTE | 2019-07-17 10:23 | PN ---
Progress Note, Physician Chief Complaint: AWAKE ALERT C/O NUMBNESS AND TINGLING UPPER EXTREMITIES - Current Medication List Current Medications: Active Medications Heparin Sodium (Porcine) (Heparin -) 5,000 unit SQ BID [facility] Last Admin: 07/17/19 09:52 Dose: 5,000 unit Levetiracetam (Keppra -) 1,500 mg PO BID [facility] Last Admin: 07/17/19 10:00 Dose: 1,500 mg Oxcarbazepine (Trileptal -) 600 mg PO BID [facility] Last Admin: 07/17/19 09:58 Dose: 600 mg Pramipexole Dihydrochloride (Mirapex -) 0.5 mg PO BID [facility] Pregabalin (Lyrica -) 75 mg PO BID [facility] Last Admin: 07/17/19 09:57 Dose: 75 mg Primidone (Mysoline -) 250 mg PO HS [facility] Last Admin: 07/16/19 22:51 Dose: 250 mg Propranolol HCl (Inderal La -) 60 mg PO DAILY [facility] Last Admin: 07/17/19 09:53 Dose: 60 mg Topiramate 100 mg/ Topiramate (50 mg) 150 mg PO BID [facility] Last Admin: 07/17/19 09:55 Dose: 150 mg - Objective Vital Signs: Vital Signs Temperature 98.8 F 07/16/19 19:48 Pulse Rate 72 07/16/19 19:48 Respiratory Rate 18 07/16/19 13:30 Blood Pressure 95/67 07/16/19 19:48 O2 Sat by Pulse Oximetry (%) 96 07/16/19 09:00 Constitutional: Yes: Mild Distress Cardiovascular: Yes: Regular Rate and Rhythm Respiratory: Yes: WNL Gastrointestinal: Yes: WNL Musculoskeletal: Yes: WNL Extremities: Yes: WNL Edema: No Integumentary: Yes: WNL Wound/Incision: Yes: Clean/Dry Neurological: Yes: Numbness, Paresthesia, Other ...Motor Strength: LUE, RUE Psychiatric: Yes: Other Labs: CBC, BMP 07/17/19 06:08 07/17/19 06:08 Problem List - Problems (1) Neuropathy Code(s): G62.9 - POLYNEUROPATHY, UNSPECIFIED (2) Headache Code(s): R51 - HEADACHE Qualifiers: Headache type: unspecified Headache chronicity pattern: acute headache Intractability: intractable Qualified Code(s): R51 - Headache (3) Migraine Code(s): G43.909 - MIGRAINE, UNSP, NOT INTRACTABLE, WITHOUT STATUS MIGRAINOSUS (4) Seizure Code(s): R56.9 - UNSPECIFIED CONVULSIONS (5) Anxiety and depression Code(s): F41.9 - ANXIETY DISORDER, UNSPECIFIED; F32.9 - MAJOR DEPRESSIVE DISORDER, SINGLE EPISODE, UNSPECIFIED (6) Status migrainosus Code(s): G43.901 - MIGRAINE, UNSP, NOT INTRACTABLE, WITH STATUS MIGRAINOSUS Assessment/Plan MRI OF CERVICAL SPINE DONE IN MAY 2019 NO DISC HERNIATIONS. I HAVE ORDERED MRI OF THE BRAIN R/O OTHER POSSIBLE CAUSES OF NEUROPATHY SUCH A DEMYELINATING DISEASE VS OTHER. AGREE WITH NEUROLOGY CONSULT RECOMMENDATIONS. PT EVAL OOB TO CHAIR DVT PROPHYLAXIS
[2019-07-17] MEDS: PRAMIPEXOLE DIHYDROCHLORIDE 0.5 MG TABLET PO SCH ×2 (11:09→22:43)
[2019-07-17] MEDS: PRIMIDONE 250 MG TABLET PO SCH (21:51)
[2019-07-18] MEDS: levETIRAcetam 500 MG TABLET (FP) PO SCH ×2 (10:10→21:40)
[2019-07-18] MEDS: HEPARIN NA (PORCINE) 5,000 UNITS/ML 1ML VIAL SQ SCH ×2 (10:11→21:41)
[2019-07-18] MEDS: PREGABALIN 75 MG CAPSULE PO SCH ×2 (10:11→21:41)
[2019-07-18] MEDS: PRAMIPEXOLE DIHYDROCHLORIDE 0.5 MG TABLET PO SCH ×2 (10:12→21:39)
[2019-07-18] MEDS: TOPIRAMATE 100 MG, TOPIRAMATE 50 MG PO SCH ×2 (10:12→21:38)
[2019-07-18] MEDS: OXcarbazepine 300 MG TABLET (UD) PO SCH ×2 (10:14→21:38)
--- NOTE | 2019-07-18 10:56 | EKG ---
Test Reason : Blood Pressure : / mmHG Vent. Rate : 062 BPM Atrial Rate : 062 BPM P-R Int : 144 ms QRS Dur : 086 ms QT Int : 434 ms P-R-T Axes : 065 039 040 degrees QTc Int : 440 ms NORMAL SINUS RHYTHM NORMAL ECG WHEN COMPARED WITH ECG OF 02-JUN-2019 20:25, NO SIGNIFICANT CHANGE WAS FOUND Confirmed by DAVID VALDEZ MD ([id number]) on 07/18/2019 10:55:51 AM Referred By: Confirmed By:DAVID VALDEZ MD
--- NOTE | 2019-07-18 15:35 | PN ---
Progress Note, Physician Chief Complaint: patient seen and examiend complaining of hand numbness and neck pain still has MO - Current Medication List Current Medications: Active Medications Heparin Sodium (Porcine) (Heparin -) 5,000 unit SQ BID [facility] Last Admin: 07/18/19 10:11 Dose: 5,000 unit Levetiracetam (Keppra -) 1,500 mg PO BID [facility] Last Admin: 07/18/19 10:10 Dose: 1,500 mg Oxcarbazepine (Trileptal -) 600 mg PO BID [facility] Last Admin: 07/18/19 10:14 Dose: 600 mg Pramipexole Dihydrochloride (Mirapex -) 0.5 mg PO BID [facility] Last Admin: 07/18/19 10:12 Dose: 0.5 mg Pregabalin (Lyrica -) 75 mg PO BID [facility] Last Admin: 07/18/19 10:11 Dose: 75 mg Primidone (Mysoline -) 250 mg PO HS [facility] Last Admin: 07/17/19 21:51 Dose: 250 mg Propranolol HCl (Inderal La -) 60 mg PO DAILY [facility] Last Admin: 07/18/19 10:11 Dose: 60 mg Topiramate 100 mg/ Topiramate (50 mg) 150 mg PO BID [facility] Last Admin: 07/18/19 10:12 Dose: 150 mg - Objective Vital Signs: Vital Signs Temperature 98.0 F 07/18/19 14:28 Pulse Rate 80 07/18/19 14:28 Respiratory Rate 18 07/18/19 06:00 Blood Pressure 108/84 07/18/19 14:28 O2 Sat by Pulse Oximetry (%) 98 07/17/19 21:00 Constitutional: Yes: Calm Cardiovascular: Yes: Regular Rate and Rhythm, S1, S2 Respiratory: Yes: CTA Bilaterally Gastrointestinal: Yes: Normal Bowel Sounds, Soft Edema: No Neurological: Yes: Other (both the upper extremities sensory and motor intact) ...Motor Strength: LUE, RUE Labs: CBC, BMP 07/17/19 06:08 07/17/19 06:08 Problem List - Problems (1) Headache Assessment/Plan: MRI of brain noted appreciate neurology consult medication changes noted had MRI of c spine in 2019 and no herniating discs Code(s): R51 - HEADACHE Qualifiers: Headache type: unspecified Headache chronicity pattern: acute headache Intractability: intractable Qualified Code(s): R51 - Headache (2) Seizure Assessment/Plan: continue medications as ordered Code(s): R56.9 - UNSPECIFIED CONVULSIONS
[2019-07-18] MEDS ORDERED: ACETAMINOPHEN 325 MG TABLET (FP) PO PRN (15:42)
[2019-07-18] MEDS: traMADol HCL 50 MG TABLET PO PRN (17:24)
[2019-07-18] MEDS ORDERED: PT OWN MED DRAWER 7, Y5N ONE (21:05)
[2019-07-18] MEDS: PRIMIDONE 250 MG TABLET PO SCH (21:41)
[2019-07-19] MEDS: traMADol HCL 50 MG TABLET PO PRN (03:12)
[2019-07-19] MEDS ORDERED: PT OWN MED DRAWER 7, Y5N ONE (09:28)
[2019-07-19] MEDS: PREGABALIN 75 MG CAPSULE PO SCH (09:46)
[2019-07-19] MEDS: levETIRAcetam 500 MG TABLET (FP) PO SCH (09:46)
[2019-07-19] MEDS: PRAMIPEXOLE DIHYDROCHLORIDE 0.5 MG TABLET PO SCH (09:47)
[2019-07-19] MEDS: HEPARIN NA (PORCINE) 5,000 UNITS/ML 1ML VIAL SQ SCH (09:47)
[2019-07-19] MEDS: TOPIRAMATE 100 MG, TOPIRAMATE 50 MG PO SCH (09:48)
[2019-07-19] MEDS: OXcarbazepine 300 MG TABLET (UD) PO SCH (09:48)
[2019-07-19 10:09] VITALS: BP 102/66; PULSE 64; TEMP 98.7
--- NOTE | 2019-07-19 11:31 | DS ---
Physical Examination Vital Signs: Vital Signs Temperature 98.7 F 07/19/19 09:00 Pulse Rate 64 07/19/19 09:00 Respiratory Rate 18 07/19/19 09:00 Blood Pressure 102/66 07/19/19 09:00 O2 Sat by Pulse Oximetry (%) 98 07/19/19 09:00 Findings/Remarks: 48 year old male with PMHx of seizures, migraines,ASMMIE, asthma, vertigo presents today with migraine, headache. As per patient migraine/headache has been occurring for month and a half, Pain is constant, pounding at time, occipital headache followed by pain in the neck, patient began to feel tingling in his left hand and forearm 3 days ago which brought patient to the ER today. Patient endorses photophobia, phonophobia. Patient denies blurry vision, nausea , vomiting, head trauma, weakness, lightheadedness or dizziness. He was admitted in May for recurrent seizures. Head CT at the time showed no acute intracranial pathology. Constitutional: Yes: Well Nourished, No Distress, Calm Cardiovascular: Yes: Regular Rate and Rhythm Respiratory: Yes: Regular Gastrointestinal: Yes: Normal Bowel Sounds, Soft Renal/: Yes: WNL Musculoskeletal: Yes: WNL Extremities: Yes: WNL Edema: No Peripheral Pulses WNL: Yes Neurological: Yes: Alert, Oriented Psychiatric: Yes: Alert, Oriented Labs: CBC, BMP 07/17/19 06:08 07/17/19 06:08 Discharge Summary Problems reviewed: Yes Reason For Visit: INTRACTABLE HEADACHE Current Active Problems GERD (gastroesophageal reflux disease) (Acute) Headache (Acute) Migraine (Acute) Neuropathy (Acute) Laboratory Last Values WBC 7.0 K/mm3 (4.0-10.0) 07/17/19 06:08 RBC 4.66 M/mm3 (4.00-5.60) 07/17/19 06:08 Hgb 14.2 GM/dL (11.7-16.9) 07/17/19 06:08 Hct 41.6 % (35.4-49) 07/17/19 06:08 MCV 89.3 fl (80-96) 07/17/19 06:08 MCH 30.5 pg (25.7-33.7) 07/17/19 06:08 MCHC 34.1 g/dl (32.0-35.9) 07/17/19 06:08 RDW 14.0 % (11.9-15.9) 07/17/19 06:08 Plt Count 293 K/MM3 (134-434) 07/17/19 06:08 MPV 7.7 fl (7.5-11.1) 07/17/19 06:08 Absolute Neuts (auto) 5.0 K/mm3 (1.5-8.0) 07/15/19 18:27 Neutrophils % 62.1 % (42.8-82.8) 07/15/19 18:27 Lymphocytes % 28.6 % (8-40) D 07/15/19 18:27 Monocytes % 7.7 % (3.8-10.2) 07/15/19 18:27 Eosinophils % 0.8 % (0-4.5) 07/15/19 18:27 Basophils % 0.8 % (0-2.0) 07/15/19 18:27 Nucleated RBC % 0 % (0-0) 07/15/19 18:27 Sodium 143 mmol/L (136-145) 07/17/19 06:08 Potassium 3.5 mmol/L (3.5-5.1) 07/17/19 06:08 Chloride 113 mmol/L (98-107) H 07/17/19 06:08 Carbon Dioxide 22 mmol/L (21-32) 07/17/19 06:08 Anion Gap 8 MMOL/L (8-16) 07/17/19 06:08 BUN 12.2 mg/dL (7-18) 07/17/19 06:08 Creatinine 0.9 mg/dL (0.55-1.3) 07/17/19 06:08 Est GFR (CKD-EPI)AfAm 116.65 07/17/19 06:08 Est GFR (CKD-EPI)NonAf 100.64 07/17/19 06:08 Random Glucose 75 mg/dL (74-106) 07/17/19 06:08 Calcium 8.4 mg/dL (8.5-10.1) L 07/17/19 06:08 Total Bilirubin 0.5 mg/dL (0.2-1) 07/17/19 06:08 AST 13 U/L (15-37) L 07/17/19 06:08 ALT 24 U/L (13-61) 07/17/19 06:08 Alkaline Phosphatase 77 U/L (45-117) 07/17/19 06:08 Total Protein 5.5 g/dl (6.4-8.2) L 07/17/19 06:08 Albumin 3.2 g/dl (3.4-5.0) L 07/17/19 06:08 Vital Signs Temp 98.7 F 07/19/19 09:00 Pulse 64 07/19/19 09:00 Resp 18 07/19/19 09:00 BP 102/66 07/19/19 09:00 Pulse Ox 98 07/19/19 09:00 Intake & Output 07/18/19 07/18/19 07/19/19 11:59 23:59 11:59 Intake Total 470 950 520 Balance 470 950 520 Weight 95.889 kg 96.672 kg Intake: IV 0 0 0 saline lock 0 0 0 IVPB 0 0 Oral 470 950 520 Other: Voiding Method Toilet Toilet Toilet # Unmeasured Voids Void 1 1 1 Bowel Movement No No No # Bowel Movements 1 Weight Measurement Method Built in Bedscale Built in Bedscale Condition: Stable - Instructions Referrals: Awais Bradley MD [Staff Physician] - Arian Garcia MD [Primary Care Provider] - Disposition: HOME - Home Medications Comprehensive Discharge Medication List: Ambulatory Orders Albuterol Sulfate Inhaler - [Ventolin HFA Inhaler -] 1 - 2 inh PO Q4H PRN Fluticasone/Vilanterol [Breo Ellipta 100-25 Mcg INH] 1 each IH DAILY 03/08/19 Topiramate [Topamax -] 150 mg PO BID #60 tablet 06/06/19 Diclofenac Sodium [Diclofenac Sodium ER] 100 mg PO DAILY 07/15/19 Oxcarbazepine [Trileptal Susp 300 mg/5 mL -] 600 mg PO BID 07/15/19 Oxcarbazepine [Trileptal -] 600 mg PO BID #120 tablet 07/19/19 Pramipexole Dihydrochloride [Mirapex -] 0.5 mg PO BID #60 tablet 07/19/19 Pregabalin [Lyrica -] 75 mg PO BID #60 capsule MDD 2 07/19/19 Primidone [Mysoline -] 250 mg PO HS #30 tablet 07/19/19 Topiramate [Topamax] 150 mg PO BID #120 tablet 07/19/19 levETIRAcetam [Keppra -] 1,500 mg PO BID #180 tablet 07/19/19 propRANOLol HCL [Inderal LA -] 60 mg PO DAILY #30 capsule.er 07/19/19
== END 2019-07-19 14:16 | disposition home or self-care (01) | DRG 74 ==
LOC: JER 16:24 → JERBED 07-16 00:03 → J6S 07-16 02:48
PROVIDERS: ADMIT Internal Medicine; ATTEND Family Medicine
DX: G62.9 Polyneuropathy, unspecified (principal); G93.49 Other encephalopathy; G43.901 Migraine, unspecified, not intractable, with status migrainosus; G40.909 Epilepsy, unspecified, not intractable, without status epilepticus; G47.33 Obstructive sleep apnea (adult) (pediatric); R42 Dizziness and giddiness; H53.149 Visual discomfort, unspecified; R20.0 Anesthesia of skin; J45.909 Unspecified asthma, uncomplicated; F41.8 Other specified anxiety disorders; K21.9 Gastro-esophageal reflux disease without esophagitis; G25.81 Restless legs syndrome; E66.9 Obesity, unspecified; Z68.33 Body mass index [BMI] 33.0-33.9, adult
CPT/HCPCS: 36415; 70450-TC; 70551-TC; 71046-TC-FY; 80053; 85025; 85027; 93005; 93010; 99283-25; J0131; J0475; J1100; J1644

== ENCOUNTER 2020-04-07 17:24 | Inpatient (IN) | payer OTHER ==
[2020-04-07] MEDS ORDERED: KETOROLAC TROMETHAMINE 30 MG/1 ML VIAL IVPUSH ONE (18:05)
[2020-04-07] MEDS ORDERED: ACETAMINOPHEN 500 MG TABLET (FP) PO ONE (18:05)
[2020-04-07] MEDS ORDERED: SODIUM CHLORIDE 0.9% 500 ML INFUS.BAG IV ONE (18:05)
[2020-04-07] MEDS ORDERED: METOCLOPRAMIDE HCL INJECTION 10 MG/2 ML VIAL IVPUSH ONE (18:05)
--- NOTE | 2020-04-07 18:18 | PDOC ---
History of Present Illness - General Chief Complaint: Seizure Stated Complaint: HEADACHE Time Seen by Provider: 04/07/20 17:35 History Source: Patient Exam Limitations: No Limitations - History of Present Illness Initial Comments: 04/07/20 18:10 49M PMH eplilepsy (trileptal, keppra, toprimate) and migraines BIBEMS for 1 week of unresolving headache that feels the same as his normal migraines, described as b/l frontal with pressure on the eyes. Pt was prescribed sumitriptan and was taking q2h w/o relief. Did not take other medications to try to break headache. Denies changes in vision / hearing, sensation, strength. Denies f/c, cough, sore throat, runny nose, sick contacts. Denies neck stiffness / pain. NKDA. Neuro - Dr. Bradley. PCP - Dr. Garcia ( saw yesterday and possibly received toradol w/o relief?) Past History - Medical History Allergies/Adverse Reactions: Allergies Allergy/AdvReac Type Severity Reaction Status Date / Time No Known Drug Allergies Allergy Verified 07/15/19 16:41 Home Medications: Ambulatory Orders Albuterol Sulfate Inhaler - [Ventolin HFA Inhaler -] 1 - 2 inh PO Q4H PRN 06/17/16 Fluticasone/Vilanterol [Breo Ellipta 100-25 Mcg INH] 1 each IH DAILY 03/08/19 Oxcarbazepine [Trileptal -] 600 mg PO BID #120 tablet 07/19/19 Pramipexole Dihydrochloride [Mirapex -] 0.5 mg PO BID #60 tablet 07/19/19 Pregabalin [Lyrica -] 75 mg PO BID #60 capsule MDD 2 07/19/19 Primidone [Mysoline -] 250 mg PO HS #30 tablet 07/19/19 Sumatriptan Succinate [Imitrex -] 100 mg PO UTDICT PRN #9 tablet 07/19/19 Topiramate [Topamax] 150 mg PO BID #120 tablet 07/19/19 propRANOLol HCL [Inderal LA -] 60 mg PO DAILY #30 capsule.er 07/19/19 levETIRAcetam [Keppra -] 750 mg PO BID 04/07/20 Anemia: No Asthma: Yes Cancer: No Cardiac Disorders: No CVA: No COPD: No CHF: No Dementia: No Diabetes: (hypoglycemia) GI Disorders: No Disorders: No HTN: No Hypercholesterolemia: No Liver Disease: No Seizures: Yes Thyroid Disease: No - Surgical History Abdominal Surgery: No Appendectomy: No Cardiac Surgery: No Cholecystectomy: No Lung Surgery: No Neurologic Surgery: No Orthopedic Surgery: Yes (heel spur left heel; carpal tunnel release, ) - Immunization History Immunization Up to Date: Yes - Psycho-Social/Smoking History Smoking Status: No Smoking History: Never smoked Have you smoked in the past 12 months: No Number of Cigarettes Smoked Daily: 0 - Substance Abuse Hx (Audit-C & DAST Scrn) How often the patient has a drink containing alcohol: Never Score: In Men: 4 or > Positive; In Women: 3 or > Positive: 0 Screen Result (Pos requires Nsg. Audit-10AR): Negative In the last yr the pt used illegal drug/Rx for NonMed reason: No Score: Yes response is considered Positive: 0 Screen Result (Positive result requires Nsg. DAST-10): Negative Review of Systems - Review of Systems Comments:: 04/08/20 07:56 CONSTITUTIONAL: Denies F / C HEENT: +headache. Denies headache, lightheadedness, dizziness, changes in vision / hearing, diplopia, blurry vision, sore throat, rhinorrhea RESP: Denies SOB, cough CARD: Denies chest pain, palpitations GI: Denies N / V / D, abdominal pain, bloody stool, inability to tolerate PO : Denies dysuria, hematuria, frequency NEURO: Denies numbness, tingling, weakness MSK: Denies back pain SKIN: Denies rashes *Physical Exam - Vital Signs Last Vital Signs Temp Pulse Resp BP Pulse Ox 98.2 F 83 16 113/77 96 04/07/20 17:25 04/07/20 17:25 04/07/20 17:25 04/07/20 17:25 04/07/20 17:25 - Physical Exam 04/08/20 07:56 GEN: NAD, comfortable. AAOx3. HEENT: NC/AT, CN II-XII intact, EOMI, PERRL. No facial asymmetry. Moist mucous membranes. Normal voice. Supple neck, FROM, neg TTP midline. CV: S1/S2, RRR, no m/r/g LUNG: CTAB, no wheezes, crackles, rales, rhonchi. GI: Soft, ndnt, +BS, no guarding, no rebound. No masses. MSK: No obvious deformities of all extremities. SKIN: Warm, dry, no rashes appreciated. PSYCH: odd affect NEURO: Moving all extremities well. 5/5 UE strength b/l. 5/5 LE strength b/l. Sensation symmetric and intact throughout. No ataxia on FTN. No pronator drift. ED Treatment Course - LABORATORY CBC & Chemistry Diagram: 04/08/20 05:40 04/08/20 05:40 Medical Decision Making - Medical Decision Making 04/08/20 07:56 49M PMH epilepsy and migraines BIBEMS for headache described as the same as his typical headaches. not resolved s/p sumatriptan. neuro intact. - CBC, CMP - IVF - tylenol, toradol, reglan, benadryl - reassess; plan to dispo home w/ neuro and pcp f/u if labs reassuring and headache resolving 04/07/20 18:57 signed out to PM team Discharge - Discharge Information Problems reviewed: Yes Clinical Impression/Diagnosis: Migraine Condition: Guarded - Follow up/Referral - Patient Discharge Instructions - Post Discharge Activity
[2020-04-07] MEDS ORDERED: METOCLOPRAMIDE HCL INJECTION 10 MG/2 ML VIAL ONE (18:33)
[2020-04-07] MEDS ORDERED: KETOROLAC TROMETHAMINE 30 MG/1 ML VIAL ONE (18:34)
[2020-04-07] MEDS ORDERED: ACETAMINOPHEN INJECTION 100 ML IVPB ONE (18:34)
[2020-04-07 18:38] LABS: HEMATOCRIT 45.1 % (35.4-49); MCH 29.3 pg (25.7-33.7); MCHC 33.2 g/dl (32.0-35.9); MEAN CELL VOLUME 88.3 fl (80-96); MEAN PLT VOLUME 8.2 fl (7.5-11.1); PLATELET COUNT 344 K/MM3 (134-434); RBC 5.11 M/mm3 (4.00-5.60); RDW 13.8 % (11.9-15.9)
[2020-04-07 18:57] LABS: ALBUMIN 3.3 g/dl (3.4-5.0); BILIRUBIN,TOTAL 0.3 mg/dL (0.2-1); CALCIUM 8.6 mg/dL (8.5-10.1); CREATININE 1.2 mg/dL (0.55-1.3); TOT PROT 6.8 g/dl (6.4-8.2)
[2020-04-07 19:00] LABS: BASO % 0.6 % (0-2.0); EOS % 0.7 % (0-4.5); LYMPH % 26.3 % (8-40); MONO % 7.2 % (3.8-10.2); NEUT % 65.2 % (42.8-82.8)
[2020-04-07 19:02] LABS: PLATELET ESTIMATE ADEQUATE
--- NOTE | 2020-04-07 19:15 | PDOC ---
*Physical Exam - Vital Signs Last Vital Signs Temp Pulse Resp BP Pulse Ox 98.2 F 79 18 119/64 98 04/07/20 17:25 04/07/20 18:56 04/07/20 18:56 04/07/20 18:56 04/07/20 18:56 - Physical Exam 04/08/20 08:46 GENERAL: Awake, alert, and fully oriented, in moderate distress HEAD: No signs of trauma, normocephalic, atraumatic. Tender to palpation on parietal and occipital area. EYES: PERRLA, EOMI, sclera anicteric, conjunctiva clear ENT: Auricles normal inspection, hearing grossly normal, nares patent, oropharynx clear without exudates. Moist mucosa NECK: Normal ROM, supple, no lymphadenopathy, JVD, or masses LUNGS: No distress, speaks full sentences, clear to auscultation bilaterally HEART: Regular rate and rhythm, normal S1 and S2, no murmurs, rubs or gallops, peripheral pulses normal and equal bilaterally. ABDOMEN: Soft, nontender, normoactive bowel sounds. No guarding, no rebound. No masses EXTREMITIES : Normal inspection, Normal range of motion, no edema. No clubbing or cyanosis. NEUROLOGICAL: Cranial nerves II through XII grossly intact. Normal speech, , no focal sensorimotor deficits SKIN: Warm, Dry, normal turgor, no rashes or lesions noted Heart Score/ECG Review - ECG Impressions Comment:: 04/07/20 19:56 Regular rate Normal sinus rhythm at 76 bpm Normal QRS, CA, and QT interval No ST changes or signs of ischemia ED Treatment Course - LABORATORY CBC & Chemistry Diagram: 04/08/20 05:40 04/08/20 05:40 - ADDITIONAL ORDERS Additional order review: Laboratory Results 04/07/20 18:20 Sodium 141 Potassium 5.0 Chloride 114 H Carbon Dioxide 22 Anion Gap 5 L BUN 21.0 H Creatinine 1.2 Est GFR (CKD-EPI)AfAm 81.80 Est GFR (CKD-EPI)NonAf 70.58 Random Glucose 111 H Calcium 8.6 Total Bilirubin 0.3 AST 44 H ALT 26 Alkaline Phosphatase 72 Total Protein 6.8 Albumin 3.3 L 04/07/20 18:20 RBC 5.11 MCV 88.3 MCHC 33.2 RDW 13.8 MPV 8.2 Neutrophils % 65.2 Lymphocytes % 26.3 Monocytes % 7.2 Eosinophils % 0.7 Basophils % 0.6 - Medications Given in the ED: ED Medications Discontinued Medications Generic Name Dose Route Start Last Admin Trade Name Marylou PRN Reason Stop Dose Admin Acetaminophen 1,000 mg 04/07/20 18:05 04/07/20 18:45 Tylenol - PO 04/07/20 18:06 1,000 mg ONCE ONE Administration Diphenhydramine HCl 25 mg 04/07/20 18:05 04/07/20 18:45 Benadryl Injection - IVPB 04/07/20 18:06 25 mg ONCE ONE Administration Ketorolac Tromethamine 30 mg 04/07/20 18:05 04/07/20 18:45 Toradol Injection - IVPUSH 04/07/20 18:06 30 mg ONCE ONE Administration Metoclopramide HCl 10 mg 04/07/20 18:05 04/07/20 18:45 Reglan Injection - IVPUSH 04/07/20 18:06 10 mg ONCE ONE Administration Sodium Chloride 1,000 ml 04/07/20 18:05 04/07/20 18:45 Normal Saline - IV 04/07/20 18:06 1,000 ml ONCE ONE Administration Medical Decision Making - Medical Decision Making 04/07/20 19:12 Received signout from AM team. Pt is 49 yo gentleman with pmh of seizure disorders that presented to ED for migraine headache that has been chronic in nature but has not gone away. Pt today received tylenol, toradol and regalon forty five minutes ago. Assessed pt and he still is in severe pain will reasess after fluids. 04/07/20 22:32 Pt still in pain gave Mg, decadron, compazine. Pt still experiencing 10/10 pain so decided to CT scan. Pt still experiencing pain after medication so gave tramadol and admit. Pt CT scan came back normal called Dr. Quiroz for admission who wanted us to consult neurology. 04/07/20 22:43 Dr. Florence who was covering for Dr. Bradley stated that he wanted him admitted, to give him fluids, and to give him one tab fioricet PRN. Microblogged admission team waiting for response. 04/07/20 23:22 Pt received night time seizure medication as well gave trilepta 600mg Keppra 750mg and topiramate 100mg. Pt was admitted to Dr. Mahoney 04/08/20 01:25 Discharge - Discharge Information Problems reviewed: Yes Clinical Impression/Diagnosis: Migraine Condition: Guarded - Admission Yes - Follow up/Referral - Patient Discharge Instructions - Post Discharge Activity
--- NOTE | 2020-04-07 19:23 | PDOC ---
Documentation entered by Zbigniew Turner SCRIBE, acting as scribe for Shital Middleton MD. Shital Middleton MD: This documentation has been prepared by the zahraae, Zbigniew Turner SCRIBE, under my direction and personally reviewed by me in its entirety. I confirm that the documentation accurately reflects all work, treatment, procedures, and medical decision making performed by me. Attending Attestation - Resident Resident Name: FabianAwais - ED Attending Attestation I have performed the following: I have examined & evaluated the patient, The case was reviewed & discussed with the resident, I agree w/resident's findings & plan, Exceptions are as noted - HPI HPI: 04/07/20 18:58 The patient is a 49 year old male with a significant past medical history of seizures (compliant with meds), migraines, asthma and vertigo who presents to the ED with a headache that began one week ago. He endorses the pain is similar to his previous migraines, causing bilateral eye pressure. The patient reports he has been taking sumatriptan every two hours today to no relief. The patient denies chest pain and shortness of breath. Denies fever, chills and/or any GI symptoms. Denies any symptoms. Denies any other symptoms. Neurologist: Dr. Meza PCP: Dr. Garcia Allergies: NKDA - Physicial Exam PE: 04/07/20 19:21 awake alert lung ctab rrr no mrg abd soft nt nd ext wwp. no edema. 5/5 all four ext. awake alert. - Medical Decision Making 04/07/20 19:21 49 yo male h/o seizure disorder, here with headache. has h/o migraine, typical of migraines. plan basic labs, r/o electrolyte abnormality and or anemia. treat with fluids, meds. reassess. Discharge - Discharge Information Problems reviewed: Yes Clinical Impression/Diagnosis: Migraine Condition: Stable Disposition: HOME - Follow up/Referral - Patient Discharge Instructions - Post Discharge Activity
[2020-04-07] MEDS ORDERED: DEXAMETHASONE SOD PHOSPHATE 10 MG/1 ML VIAL IVPUSH ONE (19:50)
[2020-04-07] MEDS ORDERED: PROCHLORPERAZINE INJECTION 10 MG/2 ML VIAL IVPB ONE (19:50)
[2020-04-07] MEDS ORDERED: MAGNESIUM 1GM/D5W - 1 GM/100 ML IVPB IVPB ONE (19:55)
[2020-04-07] MEDS ORDERED: DEXAMETHASONE SOD PHOSPHATE 10 MG/1 ML VIAL ONE (19:55)
[2020-04-07] MEDS ORDERED: PROCHLORPERAZINE INJECTION 10 MG/2 ML VIAL ONE (19:55)
[2020-04-07] MEDS ORDERED: traMADol HCL 50 MG TABLET PO ONE (20:31)
[2020-04-07] MEDS ORDERED: traMADol HCL 50 MG TABLET ONE (21:35)
[2020-04-07] MEDS ORDERED: OXcarbazepine 300 MG/5 ML 250 ML BULK BOTTLE PO ONE (22:01)
[2020-04-07] MEDS ORDERED: levETIRAcetam XR 750 MG TAB PO ONE (22:03)
[2020-04-07 23:52] VITALS: BMI 38.0
[2020-04-08] MEDS ORDERED: MELATONIN 5 MG TABLETS PO PRN (02:14)
[2020-04-08] MEDS: ACETAMINOPHEN/CAFFEINE/BUTALBITAL 1 TAB PO PRN ×2 (03:39→10:23)
--- NOTE | 2020-04-08 05:46 | PN ---
Teaching Attending Note Name of Resident: Fredy Quiroz ATTENDING PHYSICIAN STATEMENT I saw and evaluated the patient. I reviewed the resident's note and discussed the case with the resident. I agree with the resident's findings and plan as documented. SUBJECTIVE: OBJECTIVE: ASSESSMENT AND PLAN: Date of Service : April 07 2020: Patient was seen and evaluated. 49 year old male with a significant past medical history of seizures (compliant with meds), migraines, asthma and vertigo who presents to the ED with intractable. Plan # Intractable headache- s/p CT head in ED, normal findings s/p Magnesium, tramadol in ED. Resume home med daily topamax Agree with MRI Brain # Seizure disorder- monitor on keppra # History of Asthma- respiratory status remains stable, monitor
[2020-04-08 06:25] LABS: BASO % 0.1 % (0-2.0); HEMATOCRIT 44.4 % (35.4-49); HEMOGLOBIN 14.6 GM/dL (11.7-16.9); LYMPH % 16.7 % (8-40); MCH 29.2 pg (25.7-33.7); MCHC 32.9 g/dl (32.0-35.9); MEAN CELL VOLUME 88.6 fl (80-96); MEAN PLT VOLUME 7.1 fl (7.5-11.1); MONO % 2.6 % (3.8-10.2); NEUT % 80.6 % (42.8-82.8); PLATELET COUNT 299 K/MM3 (134-434); RBC 5.01 M/mm3 (4.00-5.60); WHITE BLOOD COUNT 7.9 K/mm3 (4.0-10.0)
[2020-04-08] MEDS ORDERED: ALBUTEROL SO4 HFA INHALER IH PRN (06:35)
[2020-04-08 06:56] LABS: BILIRUBIN,TOTAL 0.4 mg/dL (0.2-1); BLOOD UREA NITROGEN 17.8 mg/dL (7-18); CALCIUM 8.5 mg/dL (8.5-10.1); CREATININE 1.1 mg/dL (0.55-1.3); MAGNESIUM 2.3 mg/dL (1.8-2.4); PHOSPHOROUS 2.7 mg/dL (2.5-4.9); POTASSIUM 4.9 mmol/L (3.5-5.1)
[2020-04-08] MEDS ORDERED: levETIRAcetam 500 MG TABLET (FP) PO ONE (09:19)
[2020-04-08] MEDS ORDERED: levETIRAcetam 250 MG TABLET PO ONE ×2 (09:20→11:00)
[2020-04-08] MEDS ORDERED: PT OWN MED DRAWER 7, Y5N ONE ×2 (09:24→11:10)
--- NOTE | 2020-04-08 09:39 | HP ---
CHIEF COMPLAINT: worsening Headache for past week PCP: HISTORY OF PRESENT ILLNESS: Pounding headache began 1 week ago that was similar to his previous migraines. He experienced aura, photophobia, phonophobia & b/l eye pressure. Sumatriptan did no relieve his head pains, and the pain exacerbated, so pt came to ED for management. Last admission was for migraines 07/15/19. ER course was notable for: (1) WBC 10, BUN 21 (2)EKG: NSR, HR 76 (3) ED gave toradol, tylenol, reglan with no improvement in pain, so they gave decadron, compazine & Mg. When this did not improve the sx, a CT scan was performed, which showed no acute pathology. Tramadol was ordered, which didn't improve the pain either. (4) ED gave trilepta 600, keppra 750, topirmate 100 Recent Travel: denies PAST MEDICAL HISTORY: vertigo, SAMMIE, asthma, migraines, seizures PAST SURGICAL HISTORY: heel spur L heel, carpal tunnel release b/l, torn shoulder ligament repair Social History: Smoking: denies Alcohol:denies Drugs: denies lives with his dad & brother in apartment unemployed currently and receives disability Allergies No Known Drug Allergies Allergy (Verified 07/15/19 16:41) HOME MEDICATIONS: Home Medications Medication Instructions Recorded Albuterol Sulfate Inhaler - 1 - 2 inh PO Q4H PRN 06/17/16 [Ventolin HFA Inhaler -] Fluticasone/Vilanterol [Breo 1 each IH DAILY 03/08/19 Ellipta 100-25 Mcg INH] Oxcarbazepine [Trileptal -] 600 mg PO BID #120 tablet 07/19/19 Pramipexole Dihydrochloride 0.5 mg PO BID #60 tablet 07/19/19 [Mirapex -] Pregabalin [Lyrica -] 75 mg PO BID #60 capsule MDD 2 07/19/19 Primidone [Mysoline -] 250 mg PO HS #30 tablet 07/19/19 Sumatriptan Succinate [Imitrex -] 100 mg PO UTDICT PRN #9 tablet 07/19/19 Topiramate [Topamax] 150 mg PO BID #120 tablet 07/19/19 propRANOLol HCL [Inderal LA -] 60 mg PO DAILY #30 capsule.er 07/19/19 levETIRAcetam [Keppra -] 750 mg PO BID 04/07/20 REVIEW OF SYSTEMS CONSTITUTIONAL: Absent: fever, chills, diaphoresis, generalized weakness, malaise, loss of appetite, weight change HEENT: diffuse pounding head pain Absent: rhinorrhea, nasal congestion, throat pain, throat swelling, difficulty swallowing, mouth swelling, ear pain, eye pain, visual changes, lacrimation CARDIOVASCULAR: Absent: chest pain, syncope, palpitations, irregular heart rate, lightheadedness, peripheral edema RESPIRATORY: Absent: cough, shortness of breath, dyspnea with exertion, orthopnea, wheezing, stridor, hemoptysis GASTROINTESTINAL: Absent: abdominal pain, abdominal distension, nausea, vomiting, diarrhea, constipation, melena, hematochezia GENITOURINARY: Absent: dysuria, frequency, urgency, hesitancy, hematuria, flank pain, genital pain MUSCULOSKELETAL: Absent: myalgia, arthralgia, joint swelling, back pain, neck pain SKIN: Absent: rash, itching, pallor HEMATOLOGIC/IMMUNOLOGIC: Absent: easy bleeding, easy bruising, lymphadenopathy, frequent infections ENDOCRINE: Absent: unexplained weight gain, unexplained weight loss, heat intolerance, cold intolerance NEUROLOGIC: Absent: headache, focal weakness or paresthesias, dizziness, unsteady gait, seizure, mental status changes, bladder or bowel incontinence PSYCHIATRIC: Absent: anxiety, depression, suicidal or homicidal ideation, hallucinations. PHYSICAL EXAMINATION Vital Signs - 24 hr 04/07/20 04/07/20 04/07/20 17:25 18:56 19:15 Temperature 98.2 F 98.6 F Pulse Rate 83 Pulse Rate [ 79 80 Right Radial] Respiratory 16 18 16 Rate Blood Pressure 113/77 Blood Pressure 119/64 107/70 [Left Arm] O2 Sat by Pulse 96 98 98 Oximetry (%) 04/07/20 04/07/20 04/07/20 21:25 22:41 23:31 Temperature 98.1 F Pulse Rate 67 Pulse Rate [ 71 67 Right Radial] Respiratory 16 16 16 Rate Blood Pressure 101/67 Blood Pressure 97/70 118/80 [Left Arm] O2 Sat by Pulse 98 98 98 Oximetry (%) 04/08/20 04/08/20 02:10 06:00 Temperature 98.0 F 97.3 F L Pulse Rate 66 61 Pulse Rate [ Right Radial] Respiratory 16 17 Rate Blood Pressure 108/65 91/60 Blood Pressure [Left Arm] O2 Sat by Pulse 98 96 Oximetry (%) GENERAL: Awake, alert, and fully oriented, in no acute distress. HEENT: NT, NC, EOMI,No lid lag, ear/nears patent, MMM LUNGS: Breath sounds equal, clear to auscultation bilaterally. No wheezes, and no crackles. No accessory muscle use. HEART: Regular rate and rhythm, normal S1 and S2 without murmur, rub or gallop. ABDOMEN: Soft, nontender, not distended, hypoactive bowel sounds, no guarding, no rebound, no masses. MUSCULOSKELETAL: Normal range of motion at all joints. No bony deformities or tenderness. No CVA tenderness. UPPER EXTREMITIES: 2+ pulses, warm, well-perfused. No peripheral edema. tattoos on his arms LOWER EXTREMITIES: 2+ pulses, warm, well-perfused. No calf tenderness. No peripheral edema. NEUROLOGICAL: Cranial nerves II-XII intact. Normal speech. Normal gait. PSYCHIATRIC: Cooperative. Good eye contact. Appropriate mood and affect. Laboratory Results - last 24 hr 04/07/20 04/07/20 04/08/20 18:20 18:20 05:40 WBC 10.0 7.9 RBC 5.11 5.01 Hgb 15.0 14.6 Hct 45.1 44.4 MCV 88.3 88.6 MCH 29.3 29.2 MCHC 33.2 32.9 RDW 13.8 14.0 Plt Count 344 299 MPV 8.2 7.1 L D Absolute Neuts (auto) 6.1 6.3 Neutrophils % 65.2 80.6 D Neutrophils % (Manual) 61.0 Band Neutrophils % 0.0 Lymphocytes % 26.3 16.7 D Lymphocytes % (Manual) 31.0 Monocytes % 7.2 2.6 L Monocytes % (Manual) 5 Eosinophils % 0.7 0.0 D Eosinophils % (Manual) 3.0 Basophils % 0.6 0.1 Basophils % (Manual) 0.0 Nucleated RBC % 0 0 Platelet Estimate Adequate Platelet Comment No clumping noted Sodium 141 Potassium 5.0 Chloride 114 H Carbon Dioxide 22 Anion Gap 5 L BUN 21.0 H Creatinine 1.2 Est GFR (CKD-EPI)AfAm 81.80 Est GFR (CKD-EPI)NonAf 70.58 Random Glucose 111 H Calcium 8.6 Phosphorus Magnesium Total Bilirubin 0.3 AST 44 H ALT 26 Alkaline Phosphatase 72 Total Protein 6.8 Albumin 3.3 L 04/08/20 05:40 WBC RBC Hgb Hct MCV MCH MCHC RDW Plt Count MPV Absolute Neuts (auto) Neutrophils % Neutrophils % (Manual) Band Neutrophils % Lymphocytes % Lymphocytes % (Manual) Monocytes % Monocytes % (Manual) Eosinophils % Eosinophils % (Manual) Basophils % Basophils % (Manual) Nucleated RBC % Platelet Estimate Platelet Comment Sodium 141 Potassium 4.9 Chloride 114 H Carbon Dioxide 23 Anion Gap 4 L BUN 17.8 Creatinine 1.1 Est GFR (CKD-EPI)AfAm 90.88 Est GFR (CKD-EPI)NonAf 78.41 Random Glucose 125 H Calcium 8.5 Phosphorus 2.7 Magnesium 2.3 Total Bilirubin 0.4 AST 12 L ALT 21 Alkaline Phosphatase 62 Total Protein 6.0 L Albumin 3.0 L ASSESSMENT/PLAN: 49 YO M PMH vertigo, SAMMIE, asthma, migraines, seizures p/w worsening Headache for past week. #Head pain 2/2 likely to migraine -MRI w/ contrast ordered -Neurology c/s appreciated. Dr. Vega recommended fioricet. -propanolol for migraine ppx #h/o seizures -c/w home dose keppra, topamax, primodone. -hold oxcarbazepine due to interation with fioricet #asthma -c/w albuterol PRN #DVT ppx lovenox Sq SCDs #FEN no ivf monitor lytes regular diet #DISPO maintain med surg Visit type - Emergency Visit Emergency Visit: Yes ED Registration Date: 04/07/20 Care time: The patient presented to the Emergency Department on the above date and was hospitalized for further evaluation of their emergent condition. - New Patient This patient is new to me today: Yes Date on this admission: 04/08/20 - Critical Care Critical Care patient: No ATTENDING PHYSICIAN STATEMENT I saw and evaluated the patient. I reviewed the resident's note and discussed the case with the resident. I agree with the resident's findings and plan as documented. SUBJECTIVE: OBJECTIVE: ASSESSMENT AND PLAN:
[2020-04-08] MEDS ORDERED: BUDESONIDE/FORMETEROL FUMARATE 80/4.5 mcg INHALER IH SCH (10:00)
[2020-04-08] MEDS ORDERED: TOPIRAMATE 100 MG, TOPIRAMATE 50 MG PO SCH (10:00)
[2020-04-08] MEDS ORDERED: levETIRAcetam 500 MG TABLET (FP) PO SCH ×2 (10:00→22:00)
[2020-04-08] MEDS ORDERED: TOPIRAMATE 25 MG TABLET PO SCH (10:00)
--- NOTE | 2020-04-08 10:03 | CON.NEURO ---
Consult Consult Specialty:: [facility] Referred by:: ER - History of Present Illness History of Present Illness: 49-year-old right-handed man with a history of epilepsy, asthma, migraine headache presented to the emergency room with severe unrelenting headache period patient was tried on multiple medication in the emergency room including IV hydration with no relief from the headache vision was admitted to the [facility] a migraine the report of any seizure activity - History Source History Provided By: Medical Record - Past Medical History COTA: Yes: Migraine, Seizure, Vertigo Pulmonary: Yes: Asthma - Past Surgical History Past Surgical History: Yes: None - Alcohol/Substance Use Hx Alcohol Use: No History of Substance Use: reports: None - Smoking History Smoking history: Never smoked Have you smoked in the past 12 months: No Aproximately how many cigarettes per day: 0 - Social History ADL: Independent History of Recent Travel: No Home Medications - Allergies Allergies/Adverse Reactions: Allergies Allergy/AdvReac Type Severity Reaction Status Date / Time No Known Drug Allergies Allergy Verified 07/15/19 16:41 - Home Medications Home Medications: Ambulatory Orders Albuterol Sulfate Inhaler - [Ventolin HFA Inhaler -] 1 - 2 inh PO Q4H PRN 06/17/16 Fluticasone/Vilanterol [Breo Ellipta 100-25 Mcg INH] 1 each IH DAILY 03/08/19 Oxcarbazepine [Trileptal -] 600 mg PO BID #120 tablet 07/19/19 Pramipexole Dihydrochloride [Mirapex -] 0.5 mg PO BID #60 tablet 07/19/19 Pregabalin [Lyrica -] 75 mg PO BID #60 capsule MDD 2 07/19/19 Primidone [Mysoline -] 250 mg PO HS #30 tablet 07/19/19 Sumatriptan Succinate [Imitrex -] 100 mg PO UTDICT PRN #9 tablet 07/19/19 Topiramate [Topamax] 150 mg PO BID #120 tablet 07/19/19 propRANOLol HCL [Inderal LA -] 60 mg PO DAILY #30 capsule.er 07/19/19 levETIRAcetam [Keppra -] 750 mg PO BID 04/07/20 Physical Exam-Neuro Vital Signs: Vital Signs Temperature 97.3 F L 04/08/20 06:00 Pulse Rate 61 04/08/20 06:00 Respiratory Rate 17 04/08/20 06:00 Blood Pressure 91/60 04/08/20 06:00 O2 Sat by Pulse Oximetry (%) 98 04/08/20 09:00 Labs: CBC, BMP 04/08/20 05:40 04/08/20 05:40 Problem List - Problems (1) Migraine Code(s): G43.909 - MIGRAINE, UNSP, NOT INTRACTABLE, WITHOUT STATUS MIGRAINOSUS (2) Neuropathy Code(s): G62.9 - POLYNEUROPATHY, UNSPECIFIED (3) Seizure Code(s): R56.9 - UNSPECIFIED CONVULSIONS Assessment/Plan 1. Seizure preacution 2. increase Topamax to 200 bid 3. fiorect only for three days 4.keppra sven Florence MD
[2020-04-08] MEDS ORDERED: PREGABALIN 75 MG CAPSULE PO SCH (10:30)
[2020-04-08] MEDS ORDERED: PRAMIPEXOLE DIHYDROCHLORIDE 0.5 MG TABLET PO SCH (10:30)
--- NOTE | 2020-04-08 10:36 | PN ---
Progress Note, Physician Chief Complaint: Intractable migraine headache History of Present Illness: NAD sitting in chair Complains of headache 06/23 Received list of medications in the ER overnight, with no relief Upon questions his home medications, pt is unsure what and how much he takes. His compliance is questionable, has been questionable in the past. CT head+ MRI brain is negative Spoke to pt's brother Chris, who states pt fills his own weekly medication box and takes his own medication Brother also states that pt had a blank moment for 5-10 seconds in ER while pt was trying to sign papers in the ER with no other associated symptoms, unsure if it was seizure. As per brother, heat exacerbated pt's symptoms. Reviewed Neurology note. Pt sees Dr Bradley outpatient, reviewed his last note from 07/16/2019. Pt saw Dr Bradley 1.5 weeks ago, when he was asymptomatic. - Current Medication List Current Medications: Active Medications Albuterol Sulfate (Ventolin Hfa Inhaler -) 2 puff IH Q4H PRN PRN Reason: WHEEZING Last Admin: 04/08/20 08:33 Dose: 2 puff Documented by: Budesonide/Formoterol Fumarate (Symbicort 80/4.5mcg -) 2 puff IH BID KEMI Last Admin: 04/08/20 09:22 Dose: 2 puff Documented by: Levetiracetam (Keppra -) 1,500 mg PO BID KEMI Levetiracetam (Keppra -) 750 mg PO ONCE ONE Stop: 04/08/20 10:20 Melatonin (Melatonin) 5 mg PO HS PRN PRN Reason: INSOMNIA Last Admin: 04/08/20 03:39 Dose: 5 mg Documented by: Primidone (Mysoline -) 250 mg PO HS KEMI Propranolol HCl (Inderal La -) 60 mg PO DAILY KEMI Last Admin: 04/08/20 09:22 Dose: 60 mg Documented by: Sumatriptan Succinate (Imitrex Injection -) 6 mg SQ ONCE ONE Stop: 04/08/20 10:15 - Objective Vital Signs: Vital Signs Temperature 97.3 F L 04/08/20 06:00 Pulse Rate 61 04/08/20 06:00 Respiratory Rate 17 04/08/20 06:00 Blood Pressure 91/60 04/08/20 06:00 O2 Sat by Pulse Oximetry (%) 98 04/08/20 09:00 Constitutional: Yes: Well Nourished, No Distress, Calm Cardiovascular: Yes: Regular Rate and Rhythm Respiratory: Yes: Regular, CTA Bilaterally Gastrointestinal: Yes: Normal Bowel Sounds, Soft, Abdomen, Obese Genitourinary: Yes: WNL Musculoskeletal: Yes: WNL Extremities: Yes: WNL Edema: No Peripheral Pulses WNL: Yes Neurological: Yes: Alert, Oriented Psychiatric: Yes: Alert, Oriented Labs: CBC, BMP 04/08/20 05:40 04/08/20 05:40 Problem List - Problems (1) Static encephalopathy Assessment/Plan: -F/U with Neurology outpatient Problems reviewed: Yes Code(s): G93.49 - OTHER ENCEPHALOPATHY (2) Migraine Assessment/Plan: -Continue Inderall LA 60 mg pod aily -Continue Lyrica 75 mg po bid -Continue Pramipexole 0.5 mg po BID -Continue Primidone 250 mg po HS -Continue Oxcarbazepine 600 mg po BID -Continue Keppra 1500 mg po bid -Increase Topiramate to 200 mg po bid -May benefit from Botox or CGRP inhibitor tx outpatient- as per neurology discretion Problems reviewed: Yes Code(s): G43.909 - MIGRAINE, UNSP, NOT INTRACTABLE, WITHOUT STATUS MIGRAINOSUS (3) Seizure disorder Assessment/Plan: -Continue medications above Problems reviewed: Yes Code(s): G40.909 - EPILEPSY, UNSP, NOT INTRACTABLE, WITHOUT STATUS EPILEPTICUS Assessment/Plan See problem list Spoke to brothamanda Perez for pt update and D/C
[2020-04-08] MEDS ORDERED: SUMATRIPTAN SUCCINATE 6 MG/0.5 ML VIAL SQ ONE (11:00)
[2020-04-08] MEDS ORDERED: TOPIRAMATE 25 MG TABLET PO ONE (11:00)
[2020-04-08] MEDS ORDERED: OXcarbazepine 300 MG TABLET (UD) PO SCH (11:00)
[2020-04-08] MEDS ORDERED: DICLOFENAC SODIUM 75 MG TABLET.DR PO ONE (11:00)
[2020-04-08] MEDS ORDERED: ENOXAPARIN NA (PORCINE) 40 MG/0.4 ML DISP.SYRIN SQ SCH (11:30)
[2020-04-08 11:44] VITALS: BP 101/64; PULSE 78; TEMP 97.8
--- NOTE | 2020-04-08 17:25 | EKG ---
Test Reason : Blood Pressure : / mmHG Vent. Rate : 076 BPM Atrial Rate : 076 BPM P-R Int : 156 ms QRS Dur : 078 ms QT Int : 386 ms P-R-T Axes : 075 045 038 degrees QTc Int : 434 ms POOR DATA QUALITY, INTERPRETATION MAY BE ADVERSELY AFFECTED NORMAL SINUS RHYTHM NORMAL ECG WHEN COMPARED WITH ECG OF 16-JUL-2019 00:09, NO SIGNIFICANT CHANGE WAS FOUND Confirmed by MD Yang, Mynor ([id number]) on 04/08/2020 5:24:41 PM Referred By: Confirmed By:Mynor Soria MD
[2020-04-08] MEDS ORDERED: TOPIRAMATE 200 MG TABLET PO SCH (22:00)
[2020-04-08] MEDS ORDERED: PRIMIDONE 250 MG TABLET PO SCH (22:00)
[2020-04-08] MEDS ORDERED: TOPIRAMATE 100 MG TABLET PO SCH (22:03)
== END 2020-04-08 12:56 | disposition home or self-care (01) | DRG 103 ==
LOC: JER 17:24 → JERBED 22:04 → J7W 23:18
PROVIDERS: ADMIT Internal Medicine; ATTEND Family Medicine
DX: G43.909 Migraine, unspecified, not intractable, without status migrainosus (principal); G93.49 Other encephalopathy; G40.909 Epilepsy, unspecified, not intractable, without status epilepticus; G62.9 Polyneuropathy, unspecified; J45.909 Unspecified asthma, uncomplicated; E66.9 Obesity, unspecified; Z68.38 Body mass index [BMI] 38.0-38.9, adult
CPT/HCPCS: 36415; 70450-TC; 70552-TC; 80053; 80177; 83735; 84100; 85025; 93005; 93010; 99285-25; J1100; U0003

== ENCOUNTER 2023-09-08 02:09 | Emergency (ER) | payer OTHER ==
[2023-09-08 02:17] VITALS: BP 112/73; PULSE 81; RESP 16; TEMP 97.6; BMI 47.0
== END 2023-09-08 18:28 | disposition home or self-care (01) ==
LOC: JER 02:09
DX: R07.81 Pleurodynia (principal); W01.198A Fall on same level from slipping, tripping and stumbling with subsequent striking against other object, initial encounter; Y92.002 Bathroom of unspecified non-institutional (private) residence as the place of occurrence of the external cause
CPT/HCPCS: 70450-TC; 71250-TC; 72125-TC; 93005; 93010; 99284-25

== ENCOUNTER 2024-06-23 03:52 | Day surgery (SDC) | payer OTHER ==
[2024-06-21 16:45] VITALS: BMI 44.3
[2024-06-23] MEDS: DEXAMETHASONE SOD PHOSPHATE 10 MG/1 ML VIAL IVPUSH ONE
[2024-06-23] MEDS: LIDOCAINE HCL 1% PRESERVATIVE FREE - 30ML VIAL IJ ONE
[2024-06-23 08:44] VITALS: RESP 18
[2024-06-23] MEDS ORDERED: ACETAMINOPHEN 500 MG TABLET (FP) PO PRN (09:34)
[2024-06-23] MEDS ORDERED: BUPIVACAINE HCL/PF 0.5% (5MG/ML) 10 ML VIAL ONE (11:13)
[2024-06-23] MEDS: BUPIVACAINE HCL/PF 0.5% (5 MG/ML) 30 ML VIAL IJ ONE (11:29)
[2024-06-23 12:01] VITALS: BP 117/70; TEMP 98.6
[2024-06-23 12:27] VITALS: PULSE 86
== END 2024-06-23 12:27 | disposition home or self-care (01) ==
LOC: JASU-SURG 03:52
PROVIDERS: ATTEND Pain Medicine Pain Medicine
PROC: 3E0T3BZ Introduction of Anesthetic Agent into Peripheral Nerves and Plexi, Percutaneous Approach (ICD-10-PCS; principal; 2024-06-23 11:00)
DX: M47.812 Spondylosis without myelopathy or radiculopathy, cervical region (principal)
CPT/HCPCS: 76000-TC-FY; J1100

== ENCOUNTER 2024-07-28 05:33 | Day surgery (SDC) | payer OTHER ==
[2024-07-26 10:43] VITALS: BMI 44.3
[2024-07-28] MEDS ORDERED: ACETAMINOPHEN 500 MG TABLET (FP) PO PRN (08:59)
[2024-07-28] MEDS: BUPIVACAINE HCL/PF 0.5% (5MG/ML) 10 ML VIAL IJ ONE ×2 (15:15)
[2024-07-28 15:50] VITALS: RESP 18
[2024-07-28 17:16] VITALS: BP 124/78; PULSE 92; TEMP 97.3
== END 2024-07-28 17:16 | disposition home or self-care (01) ==
LOC: JASU-SURG 05:33
PROVIDERS: ATTEND Pain Medicine Pain Medicine
PROC: 3E0T33Z Introduction of Anti-inflammatory into Peripheral Nerves and Plexi, Percutaneous Approach (ICD-10-PCS; 2024-07-28)
PROC: 3E0T3BZ Introduction of Anesthetic Agent into Peripheral Nerves and Plexi, Percutaneous Approach (ICD-10-PCS; principal; 2024-07-28 15:30)
DX: M47.812 Spondylosis without myelopathy or radiculopathy, cervical region (principal)
CPT/HCPCS: 76000-TC-FY

== ENCOUNTER → 2024-09-22 | Day surgery (SDC) | payer OTHER ==
[2024-09-21 10:22] VITALS: BMI 43.8
[~2024-09-22] MED LIST: ACETAMINOPHEN 500 MG TABLET (FP) PO PRN
[2024-09-22] MEDS: LIDOCAINE HCL 1% PRESERVATIVE FREE - 30ML VIAL IJ ONE ×2 (13:36)
[2024-09-22] MEDS: LIDOCAINE HCL/PF 2% SDV 5ML VIAL INF ONE ×2 (13:43)
[2024-09-22] MEDS: BUPIVACAINE HCL/PF 0.75% 10 ML VIAL NR ONE ×3 (13:58)
[2024-09-22] MEDS: DEXAMETHASONE SOD PHOSPHATE 10 MG/1 ML VIAL IM ONE ×2 (14:05)
[2024-09-22 14:31] VITALS: BP 119/72; PULSE 85; RESP 16; TEMP 98
== END | disposition home or self-care (01) ==
LOC: JASU-SURG 04:35
PROVIDERS: ATTEND Pain Medicine Pain Medicine
PROC: 01513ZZ Destruction of Cervical Nerve, Percutaneous Approach (ICD-10-PCS; principal; 2024-09-22 14:30)
DX: M47.812 Spondylosis without myelopathy or radiculopathy, cervical region (principal)
CPT/HCPCS: 76000-TC-FY; J1100

== ENCOUNTER 2024-10-21 04:14 | Day surgery (SDC) | payer OTHER ==
[2024-10-20 11:20] VITALS: BMI 43.8
[2024-10-21] MEDS ORDERED: LIDOCAINE HCL/PF 2% SDV 5ML VIAL ONE (07:23)
[2024-10-21] MEDS ORDERED: BUPIVACAINE HCL/PF 0.5% (5MG/ML) 10 ML VIAL ONE (07:24)
[2024-10-21] MEDS ORDERED: LIDOCAINE HCL/PF 1% SDV 5ML VIAL ONE (07:24)
[2024-10-21] MEDS ORDERED: DEXAMETHASONE SOD PHOSPHATE 10 MG/1 ML VIAL ONE (07:24)
[2024-10-21] MEDS ORDERED: ACETAMINOPHEN 500 MG TABLET (FP) PO PRN (08:45)
[2024-10-21 11:02] VITALS: RESP 20
[2024-10-21] MEDS: BUPIVACAINE HCL/PF 0.5% (5MG/ML) 10 ML VIAL IJ ONE ×2 (11:48)
[2024-10-21] MEDS: LIDOCAINE HCL/PF 2% SDV 5ML VIAL INF ONE ×2 (11:48)
[2024-10-21] MEDS: DEXAMETHASONE SOD PHOSPHATE 10 MG/1 ML VIAL IVPUSH ONE ×2 (11:48)
[2024-10-21] MEDS: LIDOCAINE HCL 1% PRESERVATIVE FREE - 30ML VIAL IJ ONE ×2 (11:48)
[2024-10-21 12:21] VITALS: BP 104/69; PULSE 83; TEMP 98
== END 2024-10-21 12:59 | disposition home or self-care (01) ==
LOC: JASU-SURG 04:14
PROVIDERS: ATTEND Pain Medicine Pain Medicine
PROC: 015B3ZZ Destruction of Lumbar Nerve, Percutaneous Approach (ICD-10-PCS; principal; 2024-10-21 12:15)
DX: M54.12 Radiculopathy, cervical region (principal)
CPT/HCPCS: 76000-TC-FY; J1100

== ENCOUNTER 2025-05-12 06:11 | Day surgery (SDC) | payer OTHER ==
[2025-05-10 14:25] VITALS: BMI 43.7
[2025-05-12] MEDS: LIDOCAINE HCL 1% PRESERVATIVE FREE - 30ML VIAL IJ ONE
[2025-05-12 12:29] VITALS: BP 108/62; PULSE 71; RESP 20; TEMP 98.3
== END 2025-05-12 13:25 | disposition home or self-care (01) ==
LOC: JASU-SURG 06:11
PROVIDERS: ATTEND Pain Medicine Pain Medicine
PROC: 01HY3MZ Insertion of Neurostimulator Lead into Peripheral Nerve, Percutaneous Approach (ICD-10-PCS; principal; 2025-05-12 12:03)
DX: G89.4 Chronic pain syndrome (principal); M25.561 Pain in right knee
CPT/HCPCS: 64555; C1778